=== PATIENT | female | born 1960 | race Caucasian/White ===

== ENCOUNTER → 2019-08-14 08:56 | Outpatient (BNVA) | payer MEDICARE, SELFPAY | PROVIDERS: Family Provider Family Medicine; PCP Family Medicine; Visit Provider Nurse Practitioner | DX: F31.81 Bipolar II disorder (principal); F42.9 Obsessive-compulsive disorder, unspecified | CPT/HCPCS: 99213 ==

== ENCOUNTER → 2019-08-21 07:57 | Outpatient (BNVA) | payer MEDICARE, SELFPAY | PROVIDERS: Family Provider Family Medicine; PCP Family Medicine; Visit Provider Specialist | DX: G43.711 Chronic migraine without aura, intractable, with status migrainosus (principal) | CPT/HCPCS: 64615; J0585 ==

== ENCOUNTER → 2019-11-11 07:35 | Outpatient (BNVA) | payer MEDICARE, SELFPAY | PROVIDERS: Family Provider Family Medicine; PCP Family Medicine; Visit Provider Nurse Practitioner | DX: F42.9 Obsessive-compulsive disorder, unspecified (principal); F31.81 Bipolar II disorder | CPT/HCPCS: 99213 ==

== ENCOUNTER → 2019-11-13 13:12 | Outpatient (BNVA) | payer MEDICARE, SELFPAY | PROVIDERS: Family Provider Family Medicine; PCP Family Medicine; Visit Provider Specialist | DX: G43.711 Chronic migraine without aura, intractable, with status migrainosus (principal); Z87.891 Personal history of nicotine dependence | CPT/HCPCS: 64615; J0585 ==

== ENCOUNTER → 2020-02-02 12:04 | Outpatient (BNVA) | payer MEDICARE, SELFPAY | PROVIDERS: Family Provider Family Medicine; PCP Family Medicine; Visit Provider Specialist | DX: G43.711 Chronic migraine without aura, intractable, with status migrainosus (principal); F42.9 Obsessive-compulsive disorder, unspecified; F31.81 Bipolar II disorder | CPT/HCPCS: 99214 ==

== ENCOUNTER → 2020-02-05 07:54 | Outpatient (BNVA) | payer MEDICARE, SELFPAY | PROVIDERS: Family Provider Family Medicine; PCP Family Medicine; Visit Provider Nurse Practitioner | DX: F42.9 Obsessive-compulsive disorder, unspecified (principal); F31.81 Bipolar II disorder | CPT/HCPCS: 99213 ==

== ENCOUNTER 2020-02-22 08:51 | Inpatient (IN) | payer MEDICARE, SELFPAY ==
[2020-02-22] VITALS (16 sets, daily range): BP systolic 76–138; BP diastolic 52–84; PULSE 67–137; RESP 16–52; TEMP 37.2–38.7; O2SAT 92–96; BMI 28.3
--- NOTE | 2020-02-22 09:05 | XRR_ITS ---
PROCEDURE INFORMATION: Exam: XR Chest, 1 View Exam date and time: 02/22/2020 9:41 AM Age: 59 years old Clinical indication: Shortness of breath; Patient HX: SOB, fever, history of pneumonia TECHNIQUE: Imaging protocol: XR of the chest Views: Frontal upright view of the chest. COMPARISON: CR Chest 1 [place] [id number] 12/10/2017 2:32 PM FINDINGS: Lungs: Mild left parahilar infiltrate. Mild left basilar pulmonary subsegmental atelectasis. The pulmonary vasculature is normal. Pleural space: No definite pleural effusion. No pneumothorax. Heart/Mediastinum: The heart is normal in size and contour. Mediastinum: Stable. Bones/joints: Stable. Soft tissues: Medial left upper quadrant abdominal surgical clips. XR/XR chest 1V portable [id number] IMPRESSION: 1. Mild left parahilar infiltrate. Pneumonitis is difficult to exclude. Clinical correlation is recommended. 2. Mild left basilar pulmonary subsegmental atelectasis. 3. Left upper quadrant abdominal postsurgical changes.
--- NOTE | 2020-02-22 09:08 | W.ED.GENADLT ---
HPI - General Adult General: Chief complaint: General Medical Stated complaint: FEVER/MULTIPLE COMPLAINTS Time Seen by Provider: 02/22/20 08:51 History of Present Illness: HPI narrative: Patient's past states that she has been ill for several days. She has been running a fever. May have had a mild cough and mild shortness of breath. When patient was awakened this morning it was noted that she now has altered mental status. Onset (ago): day(s) Associated symptoms: Reports confusion, cough, decreased appetite, dyspnea, fevers/chills, malaise, nausea, short of breath and weakness Treatments prior to arrival: none Review of Systems General: Reports: 10 or more systems reviewed and unremarkable except in HPI and below Const: Reports: malaise Resp: Reports: dyspnea GI: Reports: nausea Neuro: Reports: confusion PFSH ED PFSH: Medical History Bipolar 2 disorder Generalized epilepsy OCD (obsessive compulsive disorder) Family History Brother Diabetes Mother Hyperlipidemia Stroke Breast cancer Father CAD (coronary artery disease) Other No pertinent family history Denies family history of Hypertension Social History Smoking and tobacco status: former smoker Alcohol intake: former History of recent travel: Yes (travels from [facility]) Physical Exam Const: GENERAL APPEARANCE: in distress, disheveled and ill appearing HENMT: COMMON NORMALS: normocephalic, atraumatic, external ears normal and Normal external nose present HEAD & SCALP: normocephalic and atraumatic FACE & SINUS: normal facial exam NOSE: Normal external nose present EXTERNAL EAR: Yes external ears normal MOUTH: Normal oral and palatal mucosa present Neck/C-Spine: COMMON NORMALS: full ROM, no lymphadenopathy, supple, no meningeal signs and no JVD GENERAL: Yes normal visual inspection Resp: COMMON NORMALS: No retractions, No use of accessory muscles and clear to auscultation bilaterally EFFORT & INSPECTION: Yes tachypneic AUSCULTATION: clear to auscultation bilaterally Cardio: COMMON NORMALS: no JVD, regular rate and regular rhythm RATE: regular rate RHYTHM: regular rhythm GI: COMMON NORMALS: Normal to inspection, nondistended, normoactive bowel sounds present, Soft to palpation, non-tender, No hepatosplenomegaly present and no masses INSPECTION: Yes normal to inspection AUSCULTATION: Yes normoactive bowel sounds PALPATION: Yes Soft to palpation and Yes No hepatosplenomegaly present PERCUSSION: normal to percussion : COMMON NORMALS: Yes no CVA tenderness and Yes normal external appearance BLADDER/KIDNEY EXAM: Yes no CVA tenderness Back/Pelvis: COMMON NORMALS: no CVA tenderness, thoracic and lumbar spine normal to inspection, no thoracic nor lumbar tenderness, thoraco-lumbar ROM normal and straight leg raise negative bilaterally Extremity: COMMON NORMALS: normal to inspection, full ROM, capillary refill normal, no joint enlargement, no clubbing, cyanosis or edema, no calf tenderness and no pedal edema Neuro: COMMON NORMALS: moves all extremities, no focal motor deficits and no sensory deficits noted MENINGEAL SIGNS: Yes no meningeal signs Psych: COMMON NORMALS: mental status grossly normal, Normal thought process present, cooperative, normal affect and speech normal SPEECH: Yes normal speech THOUGHT PROCESS: Normal thought process present Skin: COMMON NORMALS: no rashes or lesions noted, no wounds, turgor normal, no jaundice, no petechiae and no mottling GENERAL SKIN EXAM: no rashes or lesions noted and turgor normal Course Vital Signs: Vital signs: Vital Signs Temperature 101.7 F H 02/22/20 08:55 Pulse Rate 137 H 02/22/20 08:55 Respiratory Rate 52 H 02/22/20 08:55 Blood Pressure 138/84 02/22/20 08:55 Pulse Oximetry 92 02/22/20 08:55 [facility] - General Adult Lab Data: Labs: Lab Results 02/22/20 02/22/20 02/22/20 Range/Units 09:15 09:35 09:35 WBC 15.7 H (4.0-10.0) 10^3/ uL RBC 4.16 (4.1-5.3) 10^6/u L Hgb 12.4 (11.5-15.3) g/dL Hct 38.6 (37.0-47.0) % MCV 92.8 (81-99) fL MCH 29.8 (28.0-34.0) pg MCHC 32.1 (30.0-36.0) g/dL RDW 13.8 (12.1-15.1) % Plt Count 203 (130-400) 10^3/c mm MPV 9.9 (7.4-10.4) fL Neut % (Auto) 90.9 % Lymph % (Auto) 2.9 % [place] % (Auto) 5.0 % Eos % (Auto) 0.0 % Baso % (Auto) 0.4 % Neut # (Auto) 14.29 H (1.8-7.7) 10^3/u L Lymph # (Auto) 0.5 L (0.8-4.8) 10^3/u L [place] # (Auto) 0.8 (0.2-0.9) 10^3/u L Eos # (Auto) 0.0 (0.0-0.8) 10^3/u L Baso # (Auto) 0.1 (0.0-0.1) 10^3/u L Nucleated RBC % (a uto) 0 % Nucleated RBCs # 0.0 /100WBC Specimen Type Arterial Sample Site Radial, right ABG pH 7.42 (7.35-7.45) ABG pCO2 25.9 L (35-45) mmHg ABG pO2 83.0 (80.0-100.0) mmH g ABG HCO3 16.9 L (22-26) mmol/L ABG Base Excess -5.9 L (-2.0-2.0) mmol/ L [place] Test Pos Hematocrit 39.6 (37-47) % O2 Delivery Device Room air Brick Pointer ID gd Sodium 132 L (136-145) mmol/L Potassium 3.9 (3.5-5.1) mmol/L Chloride 100 (98-107) mmol/L Carbon Dioxide 19 L (22-29) mmol/L Anion Gap 16.9 (5-19) BUN 14 (6-20) mg/dL Creatinine 0.9 (0.5-0.9) mg/dL GFR Calculation 64.1 L (90-130) mL/min Glucose 126 H (65-115) mg/dL Calculated Osmolal ity 272 L (285-295) mOsm/k g Lactate (0.5-2.2) mmol/L Calcium 9.4 (8.5-10.5) mg/dL Total Bilirubin 0.3 (0.15-1.2) mg/dL AST 15 (0-32) U/L ALT 10 (0-33) U/L Alkaline Phosphata se 73 (35-105) IU/L NT-Pro-B Natriuret Pep 1204 H (0-125) pg/mL Total Protein 6.6 (6.6-8.7) g/dL Albumin 4.4 (3.5-5.2) g/dL Globulin 2.2 (1.3-4.6) g/dL Lipase 13 (13-60) U/L Urine Color (Yellow) Urine Appearance (CLEAR) Urine pH (5-7) Ur Specific Gravit y (1.005-1.030) Urine Protein (Negative) Urine Glucose (UA) (Normal) Urine Ketones (Negative) Urine Blood (Negative) Urine Nitrate (Negative) Urine Bilirubin (NEGATIVE) Prot Sulfosalicyli c Acd (Negative) Urine Urobilinogen (Negative) mg/dL Ur Leukocyte Melisa ase (Negative) 02/22/20 02/22/20 Range/Units 09:35 09:38 WBC (4.0-10.0) 10^3/ uL RBC (4.1-5.3) 10^6/u L Hgb (11.5-15.3) g/dL Hct (37.0-47.0) % MCV (81-99) fL MCH (28.0-34.0) pg MCHC (30.0-36.0) g/dL RDW (12.1-15.1) % Plt Count (130-400) 10^3/c mm MPV (7.4-10.4) fL Neut % (Auto) % Lymph % (Auto) % [place] % (Auto) % Eos % (Auto) % Baso % (Auto) % Neut # (Auto) (1.8-7.7) 10^3/u L Lymph # (Auto) (0.8-4.8) 10^3/u L [place] # (Auto) (0.2-0.9) 10^3/u L Eos # (Auto) (0.0-0.8) 10^3/u L Baso # (Auto) (0.0-0.1) 10^3/u L Nucleated RBC % (a uto) % Nucleated RBCs # /100WBC Specimen Type Sample Site ABG pH (7.35-7.45) ABG pCO2 (35-45) mmHg ABG pO2 (80.0-100.0) mmH g ABG HCO3 (22-26) mmol/L ABG Base Excess (-2.0-2.0) mmol/ L Keon Test Hematocrit (37-47) % O2 Delivery Device Brick Pointer ID Sodium (136-145) mmol/L Potassium (3.5-5.1) mmol/L Chloride (98-107) mmol/L Carbon Dioxide (22-29) mmol/L Anion Gap (5-19) BUN (6-20) mg/dL Creatinine (0.5-0.9) mg/dL GFR Calculation (90-130) mL/min Glucose (65-115) mg/dL Calculated Osmolal ity (285-295) mOsm/k g Lactate 2.1 (0.5-2.2) mmol/L Calcium (8.5-10.5) mg/dL Total Bilirubin (0.15-1.2) mg/dL AST (0-32) U/L ALT (0-33) U/L Alkaline Phosphata se (35-105) IU/L NT-Pro-B Natriuret Pep (0-125) pg/mL Total Protein (6.6-8.7) g/dL Albumin (3.5-5.2) g/dL Globulin (1.3-4.6) g/dL Lipase (13-60) U/L Urine Color Yellow (Yellow) Urine Appearance Clear (CLEAR) Urine pH 9 H (5-7) Ur Specific Gravit y 1.010 (1.005-1.030) Urine Protein Neg (Negative) Urine Glucose (UA) Norm (Normal) Urine Ketones Negative (Negative) Urine Blood Neg (Negative) Urine Nitrate Negative (Negative) Urine Bilirubin Neg (NEGATIVE) Prot Sulfosalicyli c Acd Negative (Negative) Urine Urobilinogen Norm (Negative) mg/dL Ur Leukocyte Melisa ase Negative (Negative) Discharge Plan Discharge Patient Disposition: Admitted As Inpatient Clinical Impression: Pneumonitis, Acute dyspnea Fever Qualifiers: Fever type: due to other condition Qualified Code(s): R50.81 - Fever presenting with conditions classified elsewhere Condition: Fair Referrals: Radha Blanco MD [Primary Care Provider] - Coding Level of Care Code ED Geophysical Engineer for Chg Fwd Exam Comprehensive
[2020-02-22 09:30] LABS: ABG PCO2 25.9 mmHg (35-45); ABG PH Result 7.42 (7.35-7.45); Arterial Blood Gas Hematocrit 39.6 % (37-47); Base Excess ABG -5.9 mmol/L (-2.0-2.0); Blood Gas Allen Test Pos; Blood Gas Sample Site Radial, right; Blood Gas Sample Type Arterial; HCO3 ABG 16.9 mmol/L (22-26); Oxygen Device ROOM AIR
[2020-02-22 09:42] LABS: Basophils # 0.1 10^3/uL (0.0-0.1); Basophils % 0.4 %; Hematocrit 38.6 % (37.0-47.0); Hemoglobin 12.4 g/dL (11.5-15.3); Lymphocytes # 0.5 10^3/uL (0.8-4.8); Lymphocytes % 2.9 %; Mean Corpuscular HGB Conc 32.1 g/dL (30.0-36.0); Mean Corpuscular Hemoglobin 29.8 pg (28.0-34.0); Mean Corpuscular Volume 92.8 fL (81-99); Mean Platelet Volume 9.9 fL (7.4-10.4); Monocytes # 0.8 10^3/uL (0.2-0.9); Neutrophils # 14.29 10^3/uL (1.8-7.7); Neutrophils % 90.9 %; Nucleated Red Blood Cells % 0 %; Platelet Count 203 10^3/cmm (130-400); Red Blood Count 4.16 10^6/uL (4.1-5.3); Red Cell Distribution Width 13.8 % (12.1-15.1); White Blood Count 15.7 10^3/uL (4.0-10.0)
[2020-02-22] MEDS: sodium chloride 0.9% 1,000 ML 999 ML IV ×2 (09:59→11:00)
[2020-02-22 10:07] LABS: Lactate (Lactic Acid level) 2.1 mmol/L (0.5-2.2)
[2020-02-22 10:13] LABS: Add Urine Microscopic? NO
[2020-02-22 10:16] LABS: Alanine Aminotransferase 10 U/L (0-33); Albumin Level 4.4 g/dL (3.5-5.2); Alkaline Phosphatase 73 IU/L (35-105); Anion Gap 16.9 (5-19); Aspartate Amino Transferase 15 U/L (0-32); Blood Urea Nitrogen 14 mg/dL (6-20); Calcium 9.4 mg/dL (8.5-10.5); Carbon Dioxide 19 mmol/L (22-29); Chloride 100 mmol/L (98-107); Creatinine Clr Calc Pharmacy 66.6795; Globulin 2.2 g/dL (1.3-4.6); Glomerular Filtration Rate 64.1 mL/min (90-130); Glucose 126 mg/dL (65-115); Lipase 13 U/L (13-60); NT Pro B Type Natriuretic Pept 1204 pg/mL (0-125); Osmolality Calculated 272 mOsm/kg (285-295); Potassium 3.9 mmol/L (3.5-5.1); Sodium 132 mmol/L (136-145); Total Bilirubin 0.3 mg/dL (0.15-1.2); Total Protein 6.6 g/dL (6.6-8.7)
[2020-02-22 10:28] LABS: Bilirubin Urine Neg (NEGATIVE); Blood Urine Neg (Negative); Glucose Urine UA Norm (Normal); Ketones Urine Negative (Negative); Leukocyte Esterase Urine Negative (Negative); Nitrate Urine Negative (Negative); Protein Urine Neg (Negative); Sulfosalicylic Acid Urine Negative (Negative); Urine Appearance Clear (CLEAR); Urine Color Yellow (Yellow); Urobilinogen Urine Norm (Negative); pH Urine 9 (5-7)
[2020-02-22] MEDS: piperacillin-tazobactam 3.375 GM in sodium chloride 0.9% (plus) 50 ML IV (11:45)
--- NOTE | 2020-02-22 12:52 | CTR_ITS ---
PROCEDURE INFORMATION: Exam: CT Head Without Contrast Exam date and time: 02/22/2020 1:12 PM Age: 59 years old Clinical indication: Altered mental status/memory loss; Confusion or disorientation; Patient HX: Fever, altered mental status/confusion TECHNIQUE: Imaging protocol: Computed tomography of the head without contrast. Radiation optimization: All CT scans at this facility use at least one of these dose optimization techniques: automated exposure control; mA and/or kV adjustment per patient size (includes targeted exams where dose is matched to clinical indication); or iterative reconstruction. COMPARISON: CT head wo con* [id number] 12/10/2017 3:03 PM RADIATION DOSE METRICS: Total DLP (mGy-cm): 801.2 FINDINGS: Brain: Normal. No hemorrhage. Unremarkable white matter. No mass effect. Ventricles: Normal. No ventriculomegaly. Bones/joints: Unremarkable. No acute fracture. Sinuses: Visualized sinuses are unremarkable. No fluid levels. Mastoid air cells: Visualized mastoid air cells are well aerated. Soft tissues: Unremarkable. CT/CT head wo con* [id number] IMPRESSION: No acute intracranial abnormality identified. Radiation Dose CTDIVOL = (mGy): DLP = 801.2 (mGy-cm)
--- NOTE | 2020-02-22 12:53 | PM.HP ---
Providers/Chief Complaint Admitting Physician: Giovanni Chery MD Primary Care Provider: Radha Blanco MD Chief Complaint: FEVER/MULTIPLE COMPLAINTS History of Present Illness Cassie Schwartz is a 59 year old female with a past medical history of COPD, chronic migraines, bipolar disorder, has a history of seizures secondary to sepsis in the past, has a history of a tracheostomy secondary to prolonged mechanical ventilation secondary to sepsis, has a history of traumatic brain injury, has a history of what it sounds like volvulus with colectomy, who presents to [facility] due to complaints of fever, cough, shortness of breath, altered mental status. Patient's was at bedside, and significant portion of the history was obtained by . According to , patient was her usual self, is fairly independent, alert oriented x3, fairly active. They recently traveled up to [place], went to [facility]. Have remained locally here in [place]. Starting 2 days ago, she developed fevers, complaints of shortness of breath, chest tightness, episodes of confusion. Cough is nonproductive. No hemoptysis. No recent surgeries bridged no calf pain or calf swelling. No sick contacts. No known exposures COVID-19. She complained of shortness of breath at rest and exertion. Complaint of chest tightness and chest discomfort. Denies a significant cardiac history, no history of stenting. No history of heart failure. Does have a history of COPD, quit smoking 6 months ago. Did have a history of pneumonia, 3 times in her life. No dysuria. No hematuria. Has been complaining of a chronic migraine, sees Dr. Perez as outpatient, states all her medications have been stopped and, but as per Dr. Perez's notes it looks like she is on Zonegran and Topamax. No recent falls. No recent injury, no neck pain. But does have back pain. No blurry vision. No slurring of her speech. Has has been complaining of chills, body aches, generalized malaise. In the emergency room, patient T-max 101.7, tachycardic heart rates in the 130s, respiratory rate 20-30, saturating 92% on room air, arterial blood gas showed pH 7.42, bicarb 16.9, PO2 83, sodium 132, white blood cell count 15.7, neutrophilic 14.29, lymphopenia white blood cell count 0.5, BMP 1204, UA no significant signs of urinary tract infection, chest x-ray shows right and left perihilar infiltrates, patient meets sepsis criteria, complaining of shortness of breath, chest discomfort, intermittently confused at bedside states that she is full code Review of Systems Const: Reports: fever(s), chills, body aches, fatigue and malaise Eyes: Denies: change in vision or blurry vision ENMT: Denies: throat pain or nasal congestion Card: Denies: chest pain or palpitations Resp: Reports: dyspnea and non-productive cough; Denies: productive cough or wheezing GI: Reports: abdominal pain; Denies: nausea, vomiting, hematemesis, diarrhea, constipation, hematochezia or melena : Denies: flank pain, dysuria or urinary frequency Musc: Denies: neck pain or back pain Skin/Breast: Denies: rash Neuro: Denies: headache(s), dizziness or vertigo Psych: Denies: anxiety or depression Endo: Denies: polyuria or polydipsia Medications/Allergies Home Medications Medication Instructions Recorded Confirmed Last Taken Type fluticasone propionate 50 1 spray INTRANASAL DAILY ml 08/12/19 02/22/20 02/21/20 History mcg/actuation nasal spray,suspension omeprazole 20 mg capsule,delayed 20 mg PO DAILY cap 08/12/19 02/22/20 02/21/20 History release oxybutynin chloride 5 mg 10 mg PO BID #60 tab 12/23/19 02/22/20 02/21/20 Rx tablet,extended release 24 hr zonisamide 100 mg capsule 400 mg PO DAILY 90 Days #360 cap 02/02/20 02/22/20 02/21/20 Rx lamotrigine 200 mg tablet 400 mg PO .HS #180 tab 02/05/20 02/22/20 02/21/20 Rx trazodone 100 mg tablet 300 mg PO .HS PRN #270 tab 02/05/20 02/22/20 02/21/20 Rx venlafaxine 75 mg capsule,extended 75 mg PO QAM #90 cap 02/05/20 02/22/20 02/21/20 Rx release 24 hr Ambien 10 mg PO BEDTIME 02/22/20 02/22/2020 History Geodon 120 mg PO BEDTIME 02/22/20 02/22/20 02/21/20 History gabapentin 400 mg PO DAILY 02/22/20 02/22/20 02/21/20 History topiramate 50 mg PO DAILY 02/22/20 02/22/20 02/21/20 History Allergies Allergy/AdvReac Type Severity Reaction Status Date / Time No Known Allergies Allergy Verified 02/22/20 10:15 PFSH Acute PFSH: Medical History (Updated 02/22/20 @ 13:12 by Giovanni Chery MD) Bipolar 2 disorder Generalized epilepsy OAB (overactive bladder) OCD (obsessive compulsive disorder) ALEKSANDER (stress urinary incontinence, female) Surgical History (Updated 02/22/20 @ 13:05 by Giovanni Chery MD) History of vaginal surgery posterior colporrhaphy augmented with porcine graft and mid urethral sling 07/10/2018- per Dr. Canela at [facility] No pertinent past surgical history S/P arthroscopic knee surgery 2003- bilateral knees S/P gastric bypass S/P hysterectomy states she still has her ovaries S/P partial resection of colon S/P tubal ligation Status post left knee replacement 2003 Status post tracheostomy Family History Brother Diabetes Mother Hyperlipidemia Stroke Breast cancer Father CAD (coronary artery disease) Other No pertinent family history Denies family history of Hypertension Social History Smoking and tobacco status: former smoker Alcohol intake: former History of recent travel: Yes (travels from [facility]) Vitals/I&O/Wt Last Vital Signs Temp 101.7 F H 02/22/20 08:55 Pulse 137 H 02/22/20 08:55 Resp 52 H 02/22/20 08:55 BP 138/84 02/22/20 08:55 Pulse Ox 92 02/22/20 08:55 02/21/20 02/22/20 02/22/20 22:59 06:59 14:59 Intake Total 1000 / 1000 Balance 1000 / 1000 Weight last 48 hrs Weight 74.843 kg Physical Exam Narrative: EXAM NARRATIVE: Has episodes of delirium, episodes of confusion, but at other times answers questions appropriately Const: COMMON NORMALS: no acute distress EXAM LIMITATIONS: altered mental status GENERAL APPEARANCE: ill appearing ORIENTATION/CONSCIOUSNESS: Yes awake, Yes oriented to person and Yes confused; not oriented to place and not oriented to time HENMT: COMMON NORMALS: normocephalic Eye: COMMON NORMALS: Equal, round and reactive pupils present and EOMs intact bilaterally Neck/C-Spine: COMMON NORMALS: full ROM and no lymphadenopathy Lymph: LYMPHATIC: no lymphadenopathy noted Chest: COMMONS NORMALS: normal inspection of the chest Resp: COMMON NORMALS: normal respiratory effort EFFORT & INSPECTION: Yes able to speak in complete sentences, Yes tachypneic, Yes labored, Yes Actively coughing and Yes retractions AUSCULTATION: crackles Cardio: COMMON NORMALS: no JVD RATE: tachycardic HEART SOUNDS: S1 normal heart sound present and S2 normal heart sound present GI: COMMON NORMALS: Normal to inspection, nondistended, normoactive bowel sounds present PALPATION: Yes Soft to palpation, No Firmness to palpation present (GI), Yes Tenderness to palpation present (GI) Details: LLQ, RLQ, LUQ, RUQ and other, No Guarding due to palpation present (GI), No Rigid due to palpation and Yes No hepatosplenomegaly present : COMMON NORMALS: Yes no CVA tenderness Extremity: COMMON NORMALS: normal to inspection Neuro: SENSORIUM/ORIENTATION: Yes oriented to person, No oriented to place, No oriented to time and Yes fluctuating sensorium MENINGEAL SIGNS: Yes no meningeal signs and No nuccal rigidity MOTOR EXAM: 5/5 motor strength present throughout OTHER: Difficult to follow neurologic exam Sepsis: Is patient septic: Yes Focused sepsis exam performed: Yes Date exam was performed: 02/22/20 Time exam was performed: 13:07 Data : 02/22/20 09:35 02/22/20 09:35 Micro: Microbiology 02/22/20 09:30 Blood Culture - Preliminary Blood SPECIMEN COLLECTED 02/22/20 09:35 Blood Culture - Preliminary Blood SPECIMEN COLLECTED A&P Assessment and plan (1) Acute respiratory failure with hypoxia: -Secondary to bilateral lower lobe pneumonia, atypical pneumonia, risk of COVID-19 -Risk factors include COPD, history of tracheostomy, history of sepsis and mechanical ventilation in the past, history of seizures secondary to sepsis -Concern for sepsis given tachycardia, tachypnea, fever, leukocytosis, alteration of her mentation Plan: -I believe patient needs intensive care monitoring due to concerns for sepsis -Neurochecks -Place Renteria -Monitor respiratory status closely -Oxygen therapy -COVID-19 precautions -Obtain CT of the chest CTA head -Start on azithromycin and Rocephin -Sputum cultures, blood cultures, inflammatory markers -Check TSH, cortisol -Lovenox for DVT prophylaxis -Full code -Hold off on IV fluids due to concerns for fluid overload with COVID-19, currently not hypotensive Status: Acute (2) Septic encephalopathy: -Secondary to bilateral lobe pneumonia, atypical pneumonia, risk of COVID-19 Status: Acute (3) Chronic migraine: Status: Acute (4) History of tracheostomy: Status: Acute (5) COPD (chronic obstructive pulmonary disease): Status: Acute (6) Fever: Status: Acute Qualifiers: Fever type: due to other condition Qualified Code(s): R50.81 - Fever presenting with conditions classified elsewhere (7) Mixed urinary incontinence due to female genital prolapse: Status: Acute (8) Chronic migraine without aura, intractable, with status migrainosus: Status: Acute (9) Generalized epilepsy: Status: Acute (10) Peripheral neuropathy: Status: Acute (11) OCD (obsessive compulsive disorder): Status: Acute (12) Bipolar 2 disorder: Status: Acute (13) Sepsis: Status: Acute Attestations Medical Necessity Statement*: Patient cards hospitalization, inpatient, greater than 2 midnights, for acute respiratory failure with hypoxia, sepsis, septic encephalopathy Coding Level of Care Code Acute Bottom Man for [facility] Diagnoses Acute respiratory failure with hypoxia J96.01 Septic encephalopathy G93.41 Chronic migraine G43.709 History of tracheostomy Z98.890 COPD (chronic obstructive pulmonary disease) J44.9 Fever R50.81 Fever type: due to other condition Mixed urinary incontinence due to female genital prolapse N39.46; N81.9 Chronic migraine without aura, intractable, with status migrainosus G43.711 Generalized epilepsy G40.309 Peripheral neuropathy G62.9 OCD (obsessive compulsive disorder) F42.9 Bipolar 2 disorder F31.81 Sepsis A41.9 Sepsis Event Note Evaluation Current stage of sepsis: sepsis Possible source: pulmonary Focused Exam Vital Signs Temp Pulse Resp BP Pulse Ox 02/22/20 08:55 101.7 F H 137 H 52 H 138/84 92 07/12/20 08:51 94 Respiratory exam: Present accessory muscle use Cardiovascular exam: Present tachycardia Capillary refill: < 3 Seconds Peripheral pulse strength: 3+ Normal Skin exam: normal turgor Date exam was performed: 02/22/20 Time exam was performed: 13:08 Problem List (1) Septic encephalopathy: Status: Acute (2) Sepsis: Status: Acute
[2020-02-22 13:02] LABS: Troponin T (5th) Once 6 ng/L (0-10)
[2020-02-22 13:03] LABS: Fibrinogen 550 mg/dL (184-529); INR 1.24 (0.8-1.2)
[2020-02-22 13:28] LABS: Procalcitonin 7.11 ng/mL (0-0.5)
[2020-02-22 13:39] LABS: C Reactive Protein 308.6 mg/L (0.0-4.9); Ferritin 205 ng/mL (15-150)
[2020-02-22 13:41] LABS: Lactate Dehydrogenase 205 U/L (135-214)
--- NOTE | 2020-02-22 13:57 | ECG_ITS ---
[facility] Test Date: 2020-02-22 Pat Name: Cassie Schwartz Department: Room: [facility] [place] Gender: Female Search Analyst: : 1960 Requested By: Giovanni Chery Order Number: [id number] Slick MD: Daniel Alfredo M.D. Measurements Intervals [place] Rate: 118 P: 52 HI: 143 QRS: 48 QRSD: 87 T: 42 QT: 347 QTc: 487 Interpretive Statements SINUS TACHYCARDIA ABNORMAL RHYTHM ECG INTERPRETATION BASED ON A DEFAULT AGE OF 40 YEARS Compared to ECG 12/10/2017 15:31:14 Sinus rhythm no longer present Electronically Signed On 02-22-2020 19:06:58 CDT by Daniel Alfredo M.D. [id number]
[2020-02-22] MEDS: acetaminophen 500 mg Tablet 1000 MG PO (14:03)
[2020-02-22] MEDS: enoxaparin 40 mg/0.4 mL Syringe SUBCUT (14:04)
[2020-02-22] MEDS: cefTRIAXone 1,000 MG in sodium chloride 0.9% (plus) 50 ML 100 MG IV (14:04)
[2020-02-22] MEDS: sodium chloride 0.9% 1,000 ML 75 ML IV (14:06)
--- NOTE | 2020-02-22 14:58 | ECG_ITS ---
[facility] Test Date: 2020-02-22 Pat Name: Cassie Schwartz Department: Room: [facility] Gender: Female Rib Trim Separator: : 1960 Requested By: Giovanni Chery Order Number: [id number] Slick MD: Daniel Alfredo M.D. Measurements Intervals [place] Rate: 109 P: 53 AK: 148 QRS: 45 QRSD: 85 T: 32 QT: 333 QTc: 449 Interpretive Statements SINUS TACHYCARDIA ABNORMAL RHYTHM ECG Compared to ECG 02/22/2020 15:00:03 No significant changes Electronically Signed On 02-22-2020 19:10:26 CDT by Daniel Alfredo M.D. [id number] f
[2020-02-22 15:08] LABS: Troponin(5th) Baseline 6 ng/L (0-10)
[2020-02-22 15:57] LABS: Influenza A by IFA Negative (Negative); Influenza B by IFA Negative (Negative)
[2020-02-22 16:59] LABS: Troponin 5 2HR Delta 0 ABS# (0-10)
[2020-02-22] MEDS: ibuprofen 200 mg Tablet 400 MG PO (17:38)
[2020-02-22] MEDS: azithromycin 500 MG in sodium chloride 0.9% 250 ML 250 MG IV (17:39)
[2020-02-22] MEDS: SUMAtriptan 25 mg Tablet 50 MG PO (17:39)
[2020-02-22 19:17] LABS: Troponin 5 6HR Delta 0 ng/L (0-12)
[2020-02-22] MEDS: ziprasidone hcl 60 mg Capsule 120 MG PO (20:33)
[2020-02-22] MEDS: oxybutynin chloride XL 5 MG TABLET 10 MG PO (20:33)
[2020-02-22] MEDS: lamoTRIgine 100 mg Tablet 400 MG PO (20:33)
[2020-02-23] VITALS (28 sets, daily range): BP systolic 76–134; BP diastolic 54–87; PULSE 86–110; RESP 14–16; TEMP 36.3–37.4; O2SAT 92–98
[2020-02-23] MEDS: sodium chloride 0.9% 1,000 ML 75 ML IV (03:53)
[2020-02-23] MEDS: sodium chloride 0.9% 250 ML IV (03:53)
[2020-02-23] MEDS: venlafaxine ER (24HR) 75 mg Capsule PO (05:34)
--- NOTE | 2020-02-23 07:39 | XR_ITS ---
WS: [id number] CHEST XRAY TECHNIQUE: Portable chest. CLINICAL INFORMATION: SOB COMPARISON: February 22, 2020 FINDINGS: Heart: Normal cardiac silhouette. Lungs: Tiny left pleural effusion with slight patchy infiltrate with subsegmental atelectasis left jaret ng base. This is similar to previous. Interstitial edema or infiltrates left perihilum. Bones: Normal visualized bony structures. XR/XR chest 1V portable [id number] IMPRESSION: Volume loss left lower lobe with trace pleural fluid and left lower lobe patchy infiltrate/atelectasis similar to previous.
[2020-02-23 08:14] LABS: Basophils # 0.1 10^3/uL (0.0-0.1); Basophils % 0.5 %; Eosinophils % 0.2 %; Hematocrit 32.2 % (37.0-47.0); Lymphocytes # 0.9 10^3/uL (0.8-4.8); Lymphocytes % 7.7 %; Mean Corpuscular HGB Conc 31.1 g/dL (30.0-36.0); Mean Corpuscular Hemoglobin 29.3 pg (28.0-34.0); Mean Corpuscular Volume 94.4 fL (81-99); Mean Platelet Volume 10.3 fL (7.4-10.4); Monocytes # 0.5 10^3/uL (0.2-0.9); Monocytes % 4.3 %; Neutrophils # 9.43 10^3/uL (1.8-7.7); Neutrophils % 84.9 %; Nucleated Red Blood Cells % 0 %; Platelet Count 171 10^3/cmm (130-400); Red Blood Count 3.41 10^6/uL (4.1-5.3); Red Cell Distribution Width 14.1 % (12.1-15.1); White Blood Count 11.1 10^3/uL (4.0-10.0)
[2020-02-23 08:42] LABS: Procalcitonin 10.61 ng/mL (0-0.5)
[2020-02-23 08:53] LABS: Alanine Aminotransferase 7 U/L (0-33); Albumin Level 3.1 g/dL (3.5-5.2); Alkaline Phosphatase 78 IU/L (35-105); Anion Gap 11.7 (5-19); Aspartate Amino Transferase 9 U/L (0-32); Blood Urea Nitrogen 13 mg/dL (6-20); Calcium 8.7 mg/dL (8.5-10.5); Carbon Dioxide 19 mmol/L (22-29); Chloride 113 mmol/L (98-107); Globulin 2.4 g/dL (1.3-4.6); Glomerular Filtration Rate 85.6 mL/min (90-130); Glucose 101 mg/dL (65-115); Magnesium 2.3 mg/dL (1.7-2.3); Osmolality Calculated 286 mOsm/kg (285-295); Phosphorus 1.9 mg/dL (2.5-4.5); Potassium 3.7 mmol/L (3.5-5.1); Sodium 140 mmol/L (136-145); Total Bilirubin 0.2 mg/dL (0.15-1.2); Total Protein 5.5 g/dL (6.6-8.7)
--- NOTE | 2020-02-23 09:59 | PC.NURSE ---
Taylor used. SVI >10% at 45.7. Dr. Chery notified.
[2020-02-23] MEDS: sodium chloride 0.9% 500 ML 999 ML IV (10:22)
[2020-02-23] MEDS: fluticasone nasal spray 16gm Btl 1 SPRAY INTRANASAL (10:28)
[2020-02-23] MEDS: topiramate 25 mg Tablet 50 MG PO (10:30)
[2020-02-23] MEDS: gabapentin 400 mg Capsule PO (10:30)
[2020-02-23] MEDS: oxybutynin chloride XL 5 MG TABLET 10 MG PO ×2 (10:30→18:21)
[2020-02-23] MEDS: pantoprazole DR 40 mg Tablet PO (10:30)
[2020-02-23] MEDS: zonisamide 100 MG Capsule 400 MG PO (10:31)
--- NOTE | 2020-02-23 12:32 | P.PN_ITS ---
Subjective Subjective: Interval history: This morning patient was seen in the intensive care unit, she is alert oriented x3, she complains of shortness of breath and chest discomfort, she saturating in the high 90s on room air, complains of a cough, has had fevers overnight, appetite is a bit poor, had some hypotensive episodes overnight resolving with fluids, is wondering about her COVID-19 status Vitals/I&O/Wt Last Vital Signs Temp 99.1 F 02/23/20 04:00 Pulse 110 H 02/23/20 09:00 Resp 16 02/23/20 08:27 BP 97/66 02/23/20 09:00 Pulse Ox 95 02/23/20 09:00 02/22/20 02/23/20 02/23/20 22:59 06:59 14:59 Intake Total 590 / 1590 1250 / 2840 220 / 220 Output Total 1900 / 1900 1350 / 3250 Balance -1310 / -310 -100 / -410 220 / 220 Weight last 48 hrs Weight 74.843 kg Physical Exam Const: COMMON NORMALS: patient oriented x3 GENERAL APPEARANCE: ill appearing HENMT: COMMON NORMALS: normocephalic HEAD & SCALP: normocephalic Neck/C-Spine: COMMON NORMALS: no JVD Resp: COMMON NORMALS: normal respiratory effort, No retractions, No use of accessory muscles and clear to auscultation bilaterally AUSCULTATION: clear to auscultation bilaterally Cardio: COMMON NORMALS: no JVD, regular rhythm, S1 normal heart sound present and S2 normal heart sound present RATE: tachycardic RHYTHM: regular rhythm HEART SOUNDS: S1 normal heart sound present and S2 normal heart sound present GI: COMMON NORMALS: Normal to inspection, nondistended, normoactive bowel sounds present, Soft to palpation, non-tender, No hepatosplenomegaly present, no masses and no bruits PALPATION: Yes Soft to palpation and Yes No hepatosp lenomegaly present Extremity: COMMON NORMALS: capillary refill normal, no clubbing, cyanosis or edema, no calf tenderness and no pedal edema Neuro: COMMON NORMALS: patient oriented x3 Psych: COMMON NORMALS: mental status grossly normal Urinary Catheter Management^: Renteria: Cath Placed During This Visit: yes Urinary Catheter Date of Insertion: 02/22/20 Urinary Catheter Time of Insertion: 13:27 Data : 02/23/20 07:45 02/23/20 07:45 Micro: Microbiology 02/22/20 15:15 MRSA Culture - Final Nose 02/22/20 09:30 Blood Culture - Preliminary Blood NEGATIVE TO DATE 02/22/20 09:35 Blood Culture - Preliminary Blood NEGATIVE TO DATE 02/22/20 18:10 Bacterial Antigens - Final Urine,Clean Catch A&P Assessment and plan (1) Acute respiratory failure with hypoxia: -Secondary to bilateral lower lobe pneumonia, atypical pneumonia, risk of COVID-19 -Risk factors include COPD, history of tracheostomy, history of sepsis and mechanical ventilation in the past, history of seizures secondary to sepsis -Concern for sepsis given tachycardia, tachypnea, fever, leukocytosis, alteration of her mentation -Fevers overnight, hypotensive episodes, mentation has improved back to baseline, continues to have intermittent episodes of tachycardia, sinus, white blood cell count down to 11.1, pro-Saran 10.61 Plan: -I believe patient needs intensive care monitoring due to concerns for sepsis -Neurochecks -Renteria in place -Patient is fluid responsive, SVI delta 47 -Monitor respiratory status closely -Oxygen therapy -COVID-19 precautions -Obtain CT of the chest CTA head -Start on azithromycin and Rocephin -Sputum cultures, blood cultures, inflammatory markers -Lovenox for DVT prophylaxis -Full code Status: Acute (2) Septic encephalopathy: -Secondary to bilateral lobe pneumonia, atypical pneumonia, risk of COVID- 19 -Mentation improved, alert oriented x3 Status: Acute (3) Chronic migraine: Status: Acute (4) History of tracheostomy: Status: Acute (5) COPD (chronic obstructive pulmonary disease): Status: Acute (6) Fever: Status: Acute Qualifiers: Fever type: due to other condition Qualified Code(s): R50.81 - Fever presenting with conditions classified elsewhere (7) Mixed urinary incontinence due to female genital prolapse: Status: Acute (8) Chronic migraine without aura, intractable, with status migrainosus: Status: Acute (9) Generalized epilepsy: Status: Acute (10) Peripheral neuropathy: Status: Acute (11) OCD (obsessive compulsive disorder): Status: Acute (12) Bipolar 2 disorder: Status: Acute (13) Sepsis: Status: Acute Attestations Medical Necessity Statement*: Requires continued hospitalization due to respiratory failure secondary to pneumonia, possible COVID-19 Coding Level of Care Code Acute Aviation Warfare Systems Operator for Chg Fwd Diagnoses Acute respiratory failure with hypoxia J96.01 Septic encephalopathy G93.41 Chronic migraine G43.709 History of tracheostomy Z98.890 COPD (chronic obstructive pulmonary disease) J44.9 Fever R50.81 Fever type: due to other condition Mixed urinary incontinence due to female genital prolapse N39.46; N81.9 Chronic migraine without aura, intractable, with status migrainosus G43.711 Generalized epilepsy G40.309 Peripheral neuropathy G62.9 OCD (obsessive compulsive disorder) F42.9 Bipolar 2 disorder F31.81 Sepsis A41.9
[2020-02-23] MEDS: cefTRIAXone 1,000 MG in sodium chloride 0.9% (plus) 50 ML 100 MG IV (14:52)
[2020-02-23] MEDS: enoxaparin 40 mg/0.4 mL Syringe SUBCUT (14:52)
[2020-02-23] MEDS: azithromycin 500 MG in sodium chloride 0.9% 250 ML 250 MG IV (14:56)
--- NOTE | 2020-02-23 17:22 | PC.NURSE ---
Called CT a 2nd time to check about getting pt in for CT. State they will work her in when they can
--- NOTE | 2020-02-23 20:15 | PC.NURSE ---
Pt resting in bed. No complaints of pain, but does report weakness. Pt remembers being confused but feels okay now- just states that she feels foggy . Glasses on face and full dentures noted. Renteria in place. No further needs identified at this time.
[2020-02-23] MEDS: lamoTRIgine 100 mg Tablet 400 MG PO (20:42)
[2020-02-23] MEDS: ziprasidone hcl 60 mg Capsule 120 MG PO (20:42)
[2020-02-23] MEDS: acetaminophen 325 mg Tablet 650 MG PO (23:28)
[2020-02-24] VITALS (18 sets, daily range): BP systolic 117–150; BP diastolic 73–87; PULSE 79–112; RESP 14–22; TEMP 37–37.2; O2SAT 92–96
[2020-02-24] MEDS: acetaminophen 325 mg Tablet 650 MG PO ×2 (03:21→17:54)
[2020-02-24] MEDS: venlafaxine ER (24HR) 75 mg Capsule PO (05:08)
[2020-02-24 05:19] LABS: Basophils % 0.5 %; Eosinophils # 0.1 10^3/uL (0.0-0.8); Eosinophils % 1.4 %; Hematocrit 31.4 % (37.0-47.0); Hemoglobin 9.9 g/dL (11.5-15.3); Lymphocytes # 1.3 10^3/uL (0.8-4.8); Lymphocytes % 16.7 %; Mean Corpuscular HGB Conc 31.5 g/dL (30.0-36.0); Mean Corpuscular Hemoglobin 30.5 pg (28.0-34.0); Mean Corpuscular Volume 96.6 fL (81-99); Mean Platelet Volume 10.4 fL (7.4-10.4); Monocytes # 0.3 10^3/uL (0.2-0.9); Monocytes % 3.6 %; Neutrophils # 6.14 10^3/uL (1.8-7.7); Neutrophils % 76.9 %; Nucleated Red Blood Cells % 0 %; Platelet Count 175 10^3/cmm (130-400); Red Blood Count 3.25 10^6/uL (4.1-5.3); Red Cell Distribution Width 14.2 % (12.1-15.1)
[2020-02-24 05:40] LABS: Alanine Aminotransferase 6 U/L (0-33); Albumin Level 3.1 g/dL (3.5-5.2); Alkaline Phosphatase 66 IU/L (35-105); Aspartate Amino Transferase 9 U/L (0-32); Blood Urea Nitrogen 8 mg/dL (6-20); C Reactive Protein 235.7 mg/L (0.0-4.9); Calcium 8.6 mg/dL (8.5-10.5); Carbon Dioxide 19 mmol/L (22-29); Chloride 114 mmol/L (98-107); Globulin 2.5 g/dL (1.3-4.6); Glomerular Filtration Rate 85.6 mL/min (90-130); Glucose 88 mg/dL (65-115); Magnesium 2.2 mg/dL (1.7-2.3); Osmolality Calculated 287 mOsm/kg (285-295); Phosphorus 2.9 mg/dL (2.5-4.5); Procalcitonin 6.53 ng/mL (0-0.5); Sodium 141 mmol/L (136-145); Total Bilirubin 0.2 mg/dL (0.15-1.2); Total Protein 5.6 g/dL (6.6-8.7)
[2020-02-24 05:49] LABS: Anion Gap 11.8 (5-19); Potassium 3.8 mmol/L (3.5-5.1)
[2020-02-24 07:24] LABS: Coronavirus Lab Test PTC NOT DETECTED
--- NOTE | 2020-02-24 08:00 | CT_ITS ---
WS: [id number] CTA OF THE CHEST WITH PULMONARY EMBOLISM PROTOCOL TECHNIQUE: High-resolution contrast enhanced CTA of the chest with coronal and sagittal reformatted i mages with pulmonary embolism protocol. MIP images are also reviewed. CLINICAL INFORMATION: sob COMPARISON: None. DLP: 502.[address] scans at [facility] use at least one of these dose optimization techniques: automat ed exposure control; mA and/or kV adjustment per patient size (includes targeted exams where dose is matched to clinical indication); or iterative reconstruction. FINDINGS: Proximal main pulmonary arteries are normal. Segmental and subsegmental pulmonary arteries appear pat ent. No evidence of pulmonary embolus. Postoperative changes at the GE junction. Normal caliber thora cic aorta. Small left pleural effusion with patchy consolidative infiltrates left lower lobe consistent with pne umonia. Additional airspace infiltrates with air bronchograms about the left hilum and left upper lob e consistent with pneumonia. Trace pleural fluid and atelectasis right lower lobe. Adrenal glands are normal. CT/CT angio chest PE protcl [id number] IMPRESSION: 1. No evidence for pulmonary embolus. 2. Left lower lobe and perihilar pneumonia with airspace infiltrates and air b ronchograms. 3. Small left pleural effusion. 4. Moderate esophageal hiatal hernia with postoperative changes at the GE junc tion.
[2020-02-24] MEDS: iohexol 350 mg/mL 100 mL Btl IV (08:17)
[2020-02-24] MEDS: oxybutynin chloride XL 5 MG TABLET 10 MG PO ×2 (08:57→17:53)
[2020-02-24] MEDS: pantoprazole DR 40 mg Tablet PO (08:57)
[2020-02-24] MEDS: gabapentin 400 mg Capsule PO (08:57)
[2020-02-24] MEDS: fluticasone nasal spray 16gm Btl 1 SPRAY INTRANASAL (08:57)
[2020-02-24] MEDS: zonisamide 100 MG Capsule 400 MG PO (08:58)
[2020-02-24] MEDS: topiramate 25 mg Tablet 50 MG PO (08:58)
[2020-02-24] MEDS: FUROsemide 10 mg/mL SDV 4mL 40 MG IVP (11:33)
[2020-02-24] MEDS: potassium chloride ER 10 mEq Tablet 40 MEQ PO (11:34)
[2020-02-24] MEDS: SUMAtriptan 25 mg Tablet 50 MG PO (12:43)
--- NOTE | 2020-02-24 13:36 | P.PN_ITS ---
Subjective Subjective: Interval history: This morning patient was examined in the ICU, she sitting up in bed, doing overall well, no requiring oxygen, afebrile overnight, states that she still has some shortness of breath, some chest discomfort, no lightheadedness, no dizziness, no cough, is complaining of a headache, would like to try some Imitrex for headache Vitals/I&O/Wt Last Vital Signs Temp 98.7 F 02/24/20 07:00 Pulse 100 02/24/20 08:24 Resp 19 H 02/24/20 08:24 BP 132/87 02/24/20 07:00 Pulse Ox 94 02/24/20 08:24 02/23/20 02/24/20 02/24/20 22:59 06:59 14:59 Intake Total 0 / 220 220 / 440 60 / 60 Output Total 800 / 800 1300 / 2100 Balance -800 / -580 -1080 / -1660 60 / 60 Physical Exam Narrative: EXAM NARRATIVE: Has episodes of delirium, episodes of confusion, but at other times answers questions appropriately Const: COMMON NORMALS: no acute distress and patient oriented x3 GENERAL APPEARANCE: ill appearing ORIENTATION/CONSCIOUSNESS: Yes awake, Yes oriented to person and Yes confused; not oriented to place and not oriented to time HENMT: COMMON NORMALS: normocephalic HEAD & SCALP: normocephalic Eye: COMMON NORMALS: Equal, round and reactive pupils present and EOMs intact bilaterally PUPIL: Yes Equal, round and reactive pupils present Neck/C-Spine: COMMON NORMALS: no meningeal signs and no JVD Lymph: LYMPHATIC: no lymphadenopathy noted Chest: COMMONS NORMALS: normal inspection of the chest Resp: COMMON NORMALS: normal respiratory effort, No retractions, No use of accessory muscles and clear to auscultation bilaterally EFFORT & INSPECTION: Yes able to speak in complete sentences, Yes tachypneic, Yes labored, Yes Actively coughing and Yes retractions AUSCULTATION: clear to auscultation bilaterally Cardio: COMMON NORMALS: no JVD, regular rate, regular rhythm, S1 normal heart sound present and S2 normal heart sound present RATE: regular rate RHYTHM: regular rhythm HEART SOUNDS: S1 normal heart sound present and S2 normal heart sound present GI: COMMON NORMALS: Normal to inspection, nondistended, normoactive bowel sounds present, Soft to palpation, non-tender, No hepatosplenomegaly present, no masses and no bruits PALPATION: Yes Soft to palpation and Yes No hepatosplenomegaly present : COMMON NORMALS: Yes no CVA tenderness BLADDER/KIDNEY EXAM: Yes no CVA tenderness Back/Pelvis: COMMON NORMALS: no CVA tenderness Extremity: COMMON NORMALS: capillary refill normal, no clubbing, cyanosis or edema, no calf tenderness and no pedal edema Neuro: COMMON NORMALS: patient oriented x3 SENSORIUM/ORIENTATION: Yes oriented to person, No oriented to place, No oriented to time and Yes fluctuating sensorium MENINGEAL SIGNS: Yes no meningeal signs and No nuccal rigidity MOTOR EXAM: 5/5 motor strength present throughout OTHER: Difficult to follow neurologic exam Psych: COMMON NORMALS: mental status grossly normal Urinary Catheter Management^: Renteria: Cath Placed During This Visit: yes Reason for Continuing Indwelling Catheter: Accurate Measurement of Urinary Output in Critically Ill Patients Urinary Catheter Date of Insertion: 02/22/20 Urinary Catheter Time of Insertion: 13:27 Data : 02/24/20 05:06 02/24/20 05:06 Micro: Microbiology 02/22/20 15:15 MRSA Culture - Final Nose 02/22/20 09:30 Blood Culture - Preliminary Blood NEGATIVE TO DATE 02/22/20 09:35 Blood Culture - Preliminary Blood NEGATIVE TO DATE A&P Assessment and plan (1) Acute respiratory failure with hypoxia: -Secondary to bilateral lower lobe pneumonia, atypical pneumonia, risk of COVID-19 -Risk factors include COPD, history of tracheostomy, history of sepsis and mechanical ventilation in the past, history of seizures secondary to sepsis -Concern for sepsis given tachycardia, tachypnea, fever, leukocytosis, alte ration of her mentation -Currently mentation is back to baseline, intermittent episode tachycardia, no tachypnea, no fevers, leukocytosis improved, mentation back to baseline -first COVID-19 test was negative Plan: -I believe patient needs intensive care monitoring due to concerns for sepsis -Neurochecks -Renteria in place -Patient is fluid responsive, SVI delta 47 -Monitor respiratory status closely -Oxygen therapy -COVID-19 precautions, will await second CT chest -Obtain CT angio chest shows Small left pleural effusion with patchy consolidative infiltrates left lower lobe consistent with pneumonia. Additional airspace infiltrates with air bronchograms about the left hilum and left upper lobe consistent with pneumonia. Trace pleural fluid and atelectasis right lower lobe. -Continue azithromycin and Rocephin -Sputum cultures, blood cultures, inflammatory markers -Lovenox for DVT prophylaxis -Full code -Once second covid testing is negative, will move out of ICU Status: Acute (2) Septic encephalopathy: -Secondary to bilateral lobe pneumonia, atypical pneumonia, risk of COVID- 19 -Mentation improved, alert oriented x3 Status: Acute (3) Chronic migraine: Status: Acute (4) History of tracheostomy: Status: Acute (5) COPD (chronic obstructive pulmonary disease): Status: Acute (6) Fever: Status: Acute Qualifiers: Fever type: due to other condition Qualified Code(s): R50.81 - Fever presenting with conditions classified elsewhere (7) Mixed urinary incontinence due to female genital prolapse: Status: Acute (8) Chronic migraine without aura, intractable, with status migrainosus: Status: Acute (9) Generalized epilepsy: Status: Acute (10) Peripheral neuropathy: Status: Acute (11) OCD (obsessive compulsive disorder): Status: Acute (12) Bipolar 2 disorder: Status: Acute (13) Sepsis: Status: Acute Attestations Medical Necessity Statement*: Patient requires hospitalization for acute respiratory failure secondary to left lower lobe pneumonia Coding Level of Care Code Acute Steward/Stewardess Tourist Class for g Fwd Exam Comprehensive Diagnoses Acute respiratory failure with hypoxia J96.01 Septic encephalopathy G93.41 Chronic migraine G43.709 History of tracheostomy Z98.890 COPD (chronic obstructive pulmonary disease) J44.9 Fever R50.81 Fever type: due to other condition Mixed urinary incontinence due to female genital prolapse N39.46; N81.9 Chronic migraine without aura, intractable, with status migrainosus G43.711 Generalized epilepsy G40.309 Peripheral neuropathy G62.9 OCD (obsessive compulsive disorder) F42.9 Bipolar 2 disorder F31.81 Sepsis A41.9
[2020-02-24] MEDS: cefTRIAXone 1,000 MG in sodium chloride 0.9% (plus) 50 ML 100 MG IV (13:56)
[2020-02-24] MEDS: enoxaparin 40 mg/0.4 mL Syringe SUBCUT (13:57)
[2020-02-24] MEDS: azithromycin 500 MG in sodium chloride 0.9% 250 ML 250 MG IV (14:51)
[2020-02-24] MEDS: metoclopramide 5 mg/mL SDV 2 mL 10 MG IVP (18:44)
[2020-02-24 20:23] LABS: Coronavirus Lab Test PTC Negative
[2020-02-24] MEDS: ziprasidone hcl 60 mg Capsule 120 MG PO (21:35)
[2020-02-24] MEDS: lamoTRIgine 100 mg Tablet 400 MG PO (21:35)
[2020-02-25] VITALS (11 sets, daily range): BP systolic 98–130; BP diastolic 62–91; PULSE 74–110; RESP 12–31; TEMP 36.6–37.3; O2SAT 92–95
[2020-02-25] MEDS: venlafaxine ER (24HR) 75 mg Capsule PO (04:55)
[2020-02-25 05:28] LABS: Alanine Aminotransferase 6 U/L (0-33); Albumin Level 3.4 g/dL (3.5-5.2); Alkaline Phosphatase 105 IU/L (35-105); Anion Gap 13.5 (5-19); Aspartate Amino Transferase 8 U/L (0-32); Blood Urea Nitrogen 8 mg/dL (6-20); C Reactive Protein 89.2 mg/L (0.0-4.9); Calcium 8.8 mg/dL (8.5-10.5); Carbon Dioxide 21 mmol/L (22-29); Chloride 108 mmol/L (98-107); Globulin 3.1 g/dL (1.3-4.6); Glomerular Filtration Rate 102.3 mL/min (90-130); Glucose 98 mg/dL (65-115); Magnesium 2.5 mg/dL (1.7-2.3); Osmolality Calculated 284 mOsm/kg (285-295); Phosphorus 3.5 mg/dL (2.5-4.5); Potassium 3.5 mmol/L (3.5-5.1); Sodium 139 mmol/L (136-145); Total Bilirubin 0.2 mg/dL (0.15-1.2); Total Protein 6.5 g/dL (6.6-8.7)
[2020-02-25 06:02] LABS: Basophils # 0.1 10^3/uL (0.0-0.1); Eosinophils # 0.1 10^3/uL (0.0-0.8); Hematocrit 38.7 % (37.0-47.0); Hemoglobin 12.3 g/dL (11.5-15.3); Lymphocytes # 1.4 10^3/uL (0.8-4.8); Lymphocytes % 14.7 %; Mean Corpuscular HGB Conc 31.8 g/dL (30.0-36.0); Mean Corpuscular Hemoglobin 29.7 pg (28.0-34.0); Mean Corpuscular Volume 93.5 fL (81-99); Monocytes # 0.5 10^3/uL (0.2-0.9); Monocytes % 5.8 %; Neutrophils # 7.03 10^3/uL (1.8-7.7); Neutrophils % 75.2 %; Nucleated Red Blood Cells % 0 %; Platelet Count 266 10^3/cmm (130-400); Red Blood Count 4.14 10^6/uL (4.1-5.3); Red Cell Distribution Width 13.8 % (12.1-15.1); White Blood Count 9.3 10^3/uL (4.0-10.0)
[2020-02-25 06:36] LABS: Procalcitonin 2.91 ng/mL (0-0.5)
--- NOTE | 2020-02-25 08:50 | PC.SOCIAL ---
IMM Page 2 of IMM explained to patient. Initialed, dated, and timed and placed in chart. Copy provided to patient. Also explained IMM to spouse by phone.
[2020-02-25] MEDS: pantoprazole DR 40 mg Tablet PO (09:49)
[2020-02-25] MEDS: topiramate 25 mg Tablet 50 MG PO (09:49)
[2020-02-25] MEDS: zonisamide 100 MG Capsule 400 MG PO (09:49)
[2020-02-25] MEDS: oxybutynin chloride XL 5 MG TABLET 10 MG PO ×2 (09:49→17:34)
[2020-02-25] MEDS: gabapentin 400 mg Capsule PO (09:49)
[2020-02-25] MEDS: fluticasone nasal spray 16gm Btl 1 SPRAY INTRANASAL (09:50)
[2020-02-25] MEDS: SUMAtriptan 25 mg Tablet 50 MG PO ×2 (09:53→17:32)
--- NOTE | 2020-02-25 10:07 | PM.PN ---
Subjective Subjective: Interval history: Afebrile, hemodynamically stable, no acute overnight events, COVID negative x 2 Medications: Reviewed: Yes Vitals/I&O/Wt Last Vital Signs Temp 98.5 F 02/25/20 04:25 Pulse 83 02/25/20 04:25 Resp 22 H 02/25/20 04:25 BP 113/78 02/25/20 04:25 Pulse Ox 92 02/25/20 04:25 02/24/20 02/25/20 02/25/20 22:59 06:59 14:59 Intake Total 240 / 420 120 / 540 300 / 300 Output Total 2800 / 2800 1000 / 3800 Balance -2560 / -2380 -880 / -3260 300 / 300 Physical Exam Narrative: EXAM NARRATIVE: GEN: Awake, alert and oriented, no acute distress CVS: S1S2 N RS: CTA B/L Abd: Soft, nt/nd , bs+ SULFIDE HEAD OPERATOR: no focal neuro deficits Urinary Catheter Management^: Renteria: Cath Placed During This Visit: yes Reason for Continuing Indwelling Catheter: Accurate Measurement of Urinary Output in Critically Ill Patients Urinary Catheter Date of Insertion: 02/22/20 Urinary Catheter Time of Insertion: 13:27 Data : 02/25/20 05:04 02/25/20 04:40 A&P Assessment and plan (1) Acute respiratory failure with hypoxia: -There is left lower lobe pneumonia with mild pleural effusion, likely parapneumonic -no evidence of PE on recent CTA -Concern for sepsis given tachycardia, tachypnea, fever, leukocytosis, alteration of her mentation upon admission, now resolved - COVID 19 negative x 2 - Currently on room air, home 02 evaluation -Continue Rocephin to complete 5 day course for Community acquired pneumonia. D/c azithromycin as has had 1500mg already. Check urine legionella antigen stat, if positive will be an indication to continue atypical coverage for longer. -Blood cx negative to date, MRSA nasal PCR negative -Lovenox for DVT prophylaxis - Transfer out of ICU Status: Acute (2) Septic encephalopathy: -Secondary to left lower lobe pneumonia -Mentation improved, alert oriented x3 Status: Acute (3) Chronic migraine: continue outpatient medication regimen Status: Acute (4) History of tracheostomy: Status: Acute (5) COPD (chronic obstructive pulmonary disease): Status: Acute Qualifiers: COPD type: unspecified COPD Qualified Code(s): J44.9 - Chronic obstructive pulmonary disease, unspecified (6) Fever: Status: Acute Qualifiers: Fever type: due to other condition Qualified Code(s): R50.81 - Fever presenting with conditions classified elsewhere (7) Mixed urinary incontinence due to female genital prolapse: Status: Acute (8) Chronic migraine without aura, intractable, with status migrainosus: Status: Acute (9) Generalized epilepsy: Status: Acute (10) Peripheral neuropathy: Status: Acute Qualifiers: Peripheral neuropathy type: polyneuropathy, unspecified Qualified Code(s): G62.9 - Polyneuropathy, unspecified (11) OCD (obsessive compulsive disorder): Status: Acute Qualifiers: Obsessive-compulsive disorder type: unspecified Qualified Code(s): F42.9 - Obsessive-compulsive disorder, unspecified (12) Bipolar 2 disorder: Status: Acute (13) Sepsis: Status: Acute Qualifiers: Sepsis acute organ dysfunction status: with acute organ dysfunction Sepsis type: sepsis due to unspecified organism Severe sepsis acute organ dysfunction type: encephalopathy Severe sepsis shock status: without septic shock Qualified Code(s): A41.9 - Sepsis, unspecified organism; R65.20 - Severe sepsis without septic shock; G93.40 - Encephalopathy, unspecified (14) Community acquired pneumonia: Home 02 evalutaion Status: Acute Qualifiers: Laterality: left Lung location: lower lobe of lung Qualified Code(s): J18.9 - Pneumonia, unspecified organism Attestations Medical Necessity Statement*: needs continued monitoring given severe sepsis upon admission, transfer out of ICU Coding Level of Care Code Acute Construction Quality Control Manager for [facility] F[facility] Diagnoses Acute respiratory failure with hypoxia J96.01 Septic encephalopathy G93.41 Chronic migraine G43.709 History of tracheostomy Z98.890 COPD (chronic obstructive pulmonary disease) J44.9 COPD type: unspecified COPD Fever R50.81 Fever type: due to other condition Mixed urinary incontinence due to female genital prolapse N39.46; N81.9 Chronic migraine without aura, intractable, with status migrainosus G43.711 Generalized epilepsy G40.309 Peripheral neuropathy G62.9 Peripheral neuropathy type: polyneuropathy, unspecified OCD (obsessive compulsive disorder) F42.9 Obsessive-compulsive disorder type: unspecified Bipolar 2 disorder F31.81 Sepsis A41.9; R65.20; G93.40 Sepsis acute organ dysfunction status: with acute organ dysfunction Sepsis type: sepsis due to unspecified organism Severe sepsis acute organ dysfunction type: encephalopathy Severe sepsis shock status: without septic shock Community acquired pneumonia J18.9 Laterality: left Lung location: lower lobe of lung
[2020-02-25] MEDS: enoxaparin 40 mg/0.4 mL Syringe SUBCUT (14:17)
[2020-02-25] MEDS: cefTRIAXone 1,000 MG in sodium chloride 0.9% (plus) 50 ML 100 MG IV (14:18)
[2020-02-25] MEDS: lamoTRIgine 100 mg Tablet 400 MG PO (21:30)
[2020-02-25] MEDS: ziprasidone hcl 60 mg Capsule 120 MG PO (21:30)
[2020-02-26 04:00] VITALS: BP 115/77; PULSE 83; RESP 18; TEMP 36.9; O2SAT 95
[2020-02-26 05:01] LABS: Basophils # 0.1 10^3/uL (0.0-0.1); Basophils % 1.2 %; Eosinophils # 0.1 10^3/uL (0.0-0.8); Eosinophils % 0.8 %; Hematocrit 38.8 % (37.0-47.0); Hemoglobin 12.4 g/dL (11.5-15.3); Lymphocytes # 1.7 10^3/uL (0.8-4.8); Lymphocytes % 17.6 %; Mean Corpuscular Hemoglobin 29.5 pg (28.0-34.0); Mean Corpuscular Volume 92.4 fL (81-99); Mean Platelet Volume 9.6 fL (7.4-10.4); Monocytes # 0.8 10^3/uL (0.2-0.9); Monocytes % 8.5 %; Neutrophils # 6.39 10^3/uL (1.8-7.7); Neutrophils % 65.8 %; Nucleated Red Blood Cells % 0 %; Platelet Count 325 10^3/cmm (130-400); Red Cell Distribution Width 13.9 % (12.1-15.1); White Blood Count 9.7 10^3/uL (4.0-10.0)
[2020-02-26 05:27] LABS: Alanine Aminotransferase 6 U/L (0-33); Albumin Level 3.7 g/dL (3.5-5.2); Alkaline Phosphatase 90 IU/L (35-105); Anion Gap 15.8 (5-19); Aspartate Amino Transferase 14 U/L (0-32); Blood Urea Nitrogen 7 mg/dL (6-20); Calcium 8.8 mg/dL (8.5-10.5); Carbon Dioxide 19 mmol/L (22-29); Chloride 109 mmol/L (98-107); Globulin 2.6 g/dL (1.3-4.6); Glomerular Filtration Rate 102.3 mL/min (90-130); Glucose 114 mg/dL (65-115); Osmolality Calculated 287 mOsm/kg (285-295); Potassium 3.8 mmol/L (3.5-5.1); Sodium 140 mmol/L (136-145); Total Bilirubin 0.2 mg/dL (0.15-1.2); Total Protein 6.3 g/dL (6.6-8.7)
[2020-02-26] MEDS: venlafaxine ER (24HR) 75 mg Capsule PO (06:09)
[2020-02-26] MEDS: SUMAtriptan 25 mg Tablet 50 MG PO (06:10)
[2020-02-26 06:47] LABS: Slide Review Slide Review Perform
[2020-02-26 07:41] VITALS: BP 118/64; PULSE 62; RESP 18; TEMP 36.4; O2SAT 97
[2020-02-26] MEDS: gabapentin 400 mg Capsule PO (08:34)
[2020-02-26] MEDS: pantoprazole DR 40 mg Tablet PO (08:34)
[2020-02-26] MEDS: oxybutynin chloride XL 5 MG TABLET 10 MG PO (08:34)
[2020-02-26] MEDS: fluticasone nasal spray 16gm Btl 1 SPRAY INTRANASAL (08:34)
[2020-02-26] MEDS: zonisamide 100 MG Capsule 400 MG PO (08:34)
[2020-02-26 11:13] VITALS: PULSE 103; RESP 17; O2SAT 95
[2020-02-26 11:16] VITALS: PULSE 103; RESP 17; O2SAT 95
[2020-02-26 11:20] VITALS: BP 132/68; PULSE 76; RESP 18; TEMP 36.2; O2SAT 95
--- NOTE | 2020-02-26 14:45 | PC.NURSE ---
Reviewed discharge instructions with patient at this time. Patient verbalized understanding of follow up appointment. Patient was [facility] with [facility] [place] [facility] name and address to follow up with for a [facility] neurologist appointment. Patient verbalized understanding of picking up her prescriptions at the pharmacy. Both IV's removed intact. Patient denies any pain. Patient is A&Ox3. Respirations even and non-labored on room air. Patient wheel chaired to private car.
[2020-02-26 15:00] VITALS: BP 132/68; PULSE 76; RESP 18; TEMP 36.2; O2SAT 95
--- NOTE | 2020-02-26 15:02 | PM.DCS ---
Discharge Providers Date of Admission: 02/22/20 12:33 Date of Discharge: February 26, 2020 Attending Provider at Admission: Giovanni Chery MD Attending Provider at Discharge: Sasha Garcia MD Primary Care Provider: Radha Blanco MD Diagnoses at Discharge Discharge Diagnosis (1) Acute respiratory failure with hypoxia: Status: Acute (2) Septic encephalopathy: Status: Acute (3) Chronic migraine: Status: Acute (4) History of tracheostomy: Status: Acute (5) COPD (chronic obstructive pulmonary disease): Status: Acute Qualifiers: COPD type: unspecified COPD Qualified Code(s): J44.9 - Chronic obstructive pulmonary disease, unspecified (6) Fever: Status: Acute Qualifiers: Fever type: due to other condition Qualified Code(s): R50.81 - Fever presenting with conditions classified elsewhere (7) Mixed urinary incontinence due to female genital prolapse: Status: Acute (8) Chronic migraine without aura, intractable, with status migrainosus: Status: Acute (9) Generalized epilepsy: Status: Acute (10) Peripheral neuropathy: Status: Acute Qualifiers: Peripheral neuropathy type: polyneuropathy, unspecified Qualified Code(s): G62.9 - Polyneuropathy, unspecified (11) OCD (obsessive compulsive disorder): Status: Acute Qualifiers: Obsessive-compulsive disorder type: unspecified Qualified Code(s): F42.9 - Obsessive-compulsive disorder, unspecified (12) Bipolar 2 disorder: Status: Acute (13) Sepsis: Status: Acute Qualifiers: Sepsis type: sepsis due to unspecified organism Sepsis acute organ dysfunction status: with acute organ dysfunction Severe sepsis acute organ dysfunction type: encephalopathy Severe sepsis shock status: without septic shock Qualified Code(s): A41.9 - Sepsis, unspecified organism; R65.20 - Severe sepsis without septic shock; G93.40 - Encephalopathy, unspecified (14) Community acquired pneumonia: Status: Acute Qualifiers: Laterality: left Lung location: lower lobe of lung Qualified Code(s): J18.9 - Pneumonia, unspecified organism Reason for Visit Reason for Visit: FEVER/MULTIPLE COMPLAINTS Hospital Course Discharge Summary: Cassie Schwartz is a 59 year old female with a past medical history of COPD, chronic intractable migraines that have not responded to multiple treatment in the past, bipolar disorder, has a history of seizures secondary to staphylococcal sepsis in the past, has a history of a tracheostomy secondary to 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 In the emergency room, patient T-max 101.7, tachycardic heart rates in the 130s, respiratory rate 20-30, saturating 92% on room air, arterial blood gas showed pH 7.42, bicarb 16.9, PO2 83, sodium 132, white blood cell count 15.7, neutrophilic 14.29, lymphopenia white blood cell count 0.5, BMP 1204, UA no significant signs of urinary tract infection, chest x-ray shows right and left perihilar infiltrates. She was diagnosed to have left-sided community-acquired pneumonia. She did have a recent history of travel to [place] for shopping therefore was COVID tested also and this PCR testing was negative x2. Her mental status improved significantly on the day of admission and likely represented toxic metabolic encephalopathy from sepsis. While on the day of admission she required some supplemental O2 via nasal cannula, since February 21 she has been off oxygen on room air. Her mental status is now back at baseline. Apart from intractable headaches which have been ongoing for the last several years and followed by neurology has an outpatient, she recovered quite well. Imitrex seemed to help somewhat with her headaches. CT of the head did not show any acute intracranial abnormalities. Her leukocytosis has now normalized. She is on room air. She is able to ambulate without assistance and no movement. She is being discharged today in much improved condition. She has thus far received ceftriaxone and azithromycin during the course of admission and is being discharged on 2 remaining days of p.o. Augmentin. Sepsis resolved by the time of discharge. She is encouraged to follow-up with her primary care provider in the next 4 to 7 days of discharge to ensure she is doing well. There is likely to be radiological delay in the clearing of her chest x-rays. On her medication list, Topamax was discontinued after reviewing last neurology note. 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: no focal neuro deficits Urinary Catheter Management^: Renteria: Cath Placed During This Visit: yes, but has since been removed by the nurse Reason for Continuing Indwelling Catheter: Decision to DC Catheter Urinary Catheter Date of Insertion: 02/22/20 Urinary Catheter Time of Insertion: 13:27 Date Urinary Catheter Removed: 02/25/20 Time Urinary Catheter Discontinued: 12:15 Discharge Data Data Completed and Pending: Completed Studies During Hospitalization Category Date Time Status CT angio chest PE protcl 96296 Urge nt Cat Scan 02/24/20 08:[address] head wo con* 7 0450 Urgent Cat Scan 02/22/20 12:52 Completed XR chest 1V steven ble [id number] Routine Exams 02/23/20 07:39 Completed XR chest 1V steven ble [id number] Urgent Exams 02/22/20 09:05 Completed Pending at discharge Category Date Time Status Blood Culture Sta t Lab 02/22/20 09:30 Results Interleukin 6 (IL -6) Serum Stat Lab 02/22/20 09:35 Received Labs from last 24 hours 02/26/20 02/26/20 04:30 04:30 WBC 9.7 RBC 4.20 Hgb 12.4 Hct 38.8 MCV 92.4 MCH 29.5 MCHC 32.0 RDW 13.9 Plt Count 325 MPV 9.6 Neut % (Auto) 65.8 Lymph % (Auto) 17.6 [place] % (Auto) 8.5 Eos % (Auto) 0.8 Baso % (Auto) 1.2 Neut # (Auto) 6.39 Lymph # (Auto) 1.7 [place] # (Auto) 0.8 Eos # (Auto) 0.1 Baso # (Auto) 0.1 Nucleated RBC % (a uto) 0 Nucleated RBCs # 0.0 Sodium 140 Potassium 3.8 Chloride 109 H Carbon Dioxide 19 L Anion Gap 15.8 BUN 7 Creatinine 0.6 GFR Calculation 102.3 Glucose 114 Calculated Osmolal ity 287 Calcium 8.8 Total Bilirubin 0.2 AST 14 ALT 6 Alkaline Phosphata se 90 Total Protein 6.3 L Albumin 3.7 Globulin 2.6 Vitals: Last Vital Signs Temp 97.2 F L 02/26/20 11:20 Pulse 76 02/26/20 11:20 Resp 18 02/26/20 11:20 BP 132/68 02/26/20 11:20 Pulse Ox 95 02/26/20 11:20 Discharge Plan Discharge Patient Disposition: Home, Self-Care Condition: Fair Prescriptions: New acetaminophen 325 mg Tablet 650 mg PO Q4H PRN (Reason: Mild Pain Or Increase Temp) Qty: 0 RF: 0 Augmentin 875-125 mg tablet 1 tab PO BID 2 Days Qty: 4 RF: 0 rizatriptan 10 mg tablet 10 mg PO DAILY PRN (Reason: migraine headache) Qty: 10 RF: 0 Continued lamotrigine [Lamictal] 200 mg tablet 400 mg PO .HS Qty: 180 RF: 0 trazodone 100 mg tablet 300 mg PO .HS PRN (Reason: sleep) Qty: 270 RF: 0 venlafaxine [Effexor XR] 75 mg capsule,extended release 24hr 75 mg PO QAM Qty: 90 RF: 0 zonisamide [Zonegran] 100 mg capsule 400 mg PO DAILY 90 Days Qty: 360 RF: 1 oxybutynin chloride 5 mg tablet extended release 24hr 10 mg PO BID Qty: 60 RF: 3 omeprazole 20 mg capsule,delayed release(DR/EC) 20 mg PO DAILY RF: 0 fluticasone propionate [Allergy Relief (fluticasone)] 50 mcg/actuation spray,suspension 1 spray INTRANASAL DAILY RF: 0 gabapentin 400 mg capsule 400 mg PO DAILY RF: 0 Ambien 10 mg tablet 10 mg PO BEDTIME RF: 0 Geodon 60 mg capsule 120 mg PO BEDTIME RF: 0 Discontinued topiramate 50 mg tablet 50 mg PO DAILY RF: 0 Discharge Orders: Discharge Order (Routine); Ordered 02/26/20 Ordered By: Sasha Garcia Referrals: Radha Blanco MD [Primary Care Provider] - 03/02/20 9:30 am (You have an hospital follow up appointment with Albert March 02 at 9:30am) Discharge Diet: Usual diet Discharge Activity: Resume usual activity Patient Instructions: Amoxicillin/Clavulanate Potassium (By mouth), Pneumonia (GEN), Pneumonia Stoplight Discharge Date/Time: 02/26/20 14:45 Discharge Attestations Time Spent in Discharge Care*: less than 30 min Quality Metrics Clinical Quality Measures During this hospital stay, did patient experience: None Coding Level of Care Code Acute Reporting Manager for g Fwd Diagnoses Acute respiratory failure with hypoxia J96.01 Septic encephalopathy G93.41 Chronic migraine G43.709 History of tracheostomy Z98.890 COPD (chronic obstructive pulmonary disease) J44.9 COPD type: unspecified COPD Fever R50.81 Fever type: due to other condition Mixed urinary incontinence due to female genital prolapse N39.46; N81.9 Chronic migraine without aura, intractable, with status migrainosus G43.711 Generalized epilepsy G40.309 Peripheral neuropathy G62.9 Peripheral neuropathy type: polyneuropathy, unspecified OCD (obsessive compulsive disorder) F42.9 Obsessive-compulsive disorder type: unspecified Bipolar 2 disorder F31.81 Sepsis A41.9; R65.20; G93.40 Sepsis type: sepsis due to unspecified organism Sepsis acute organ dysfunction status: with acute organ dysfunction Severe sepsis acute organ dysfunction type: encephalopathy Severe sepsis shock status: without septic shock Community acquired pneumonia J18.9 Laterality: left Lung location: lower lobe of lung
== END 2020-02-26 14:45 | disposition home or self-care (01) | DRG 871 ==
LOC: ER 11:57 → ICU 12:51 → MEDSURG 02-25 13:28
PROVIDERS: Family Medicine; Admitting Provider Family Medicine; Family Provider Family Medicine; PCP Family Medicine; Visit Provider Student in an Organized Health Care Education/Training Program
DX: A41.9 Sepsis, unspecified organism (principal); J18.9 Pneumonia, unspecified organism; G93.41 Metabolic encephalopathy; J96.01 Acute respiratory failure with hypoxia; F31.81 Bipolar II disorder; J44.0 Chronic obstructive pulmonary disease with (acute) lower respiratory infection; G40.309 Generalized idiopathic epilepsy and epileptic syndromes, not intractable, without status epilepticus; G62.9 Polyneuropathy, unspecified; F42.9 Obsessive-compulsive disorder, unspecified; Z98.84 Bariatric surgery status; Z87.891 Personal history of nicotine dependence
CPT/HCPCS: 12345; 36415; 36600; 51702; 70450; 71045; 71275; 80053; 81003; 82728; 82803; 83520; 83605; 83615; 83690; 83735; 83880; 84100; 84145; 84443; 84484; 85025; 85378; 85384; 85610; 86140; 86403; 87040; 87449; 87635; 87641; 87804; 93005; 94664; 96372; 96375; 99284; J0456; J0696; J1650; J1940; J2543; J2765; J7030; J7040; J7050; Q9967

== ENCOUNTER → 2020-03-22 14:03 | Outpatient (BNVA) | payer MEDICARE, SELFPAY | PROVIDERS: Family Provider Family Medicine; PCP Family Medicine; Visit Provider Obstetrics & Gynecology | DX: R35.0 Frequency of micturition (principal) | CPT/HCPCS: 81000 ==

== ENCOUNTER → 2020-04-26 09:00 | Outpatient (BNVA) | payer MEDICARE, SELFPAY | PROVIDERS: Family Provider Family Medicine; PCP Family Medicine; Visit Provider Nurse Practitioner Family | DX: R35.0 Frequency of micturition (principal); R39.15 Urgency of urination | CPT/HCPCS: 81001 ==

== ENCOUNTER → 2020-04-27 09:27 | Outpatient (BNVA) | payer MEDICARE, SELFPAY | PROVIDERS: Family Provider Family Medicine; PCP Family Medicine; Visit Provider Nurse Practitioner | DX: F31.81 Bipolar II disorder (principal); F42.9 Obsessive-compulsive disorder, unspecified | CPT/HCPCS: 99213 ==

== ENCOUNTER 2020-06-03 13:07 | Outpatient (CLI) | payer MEDICARE, SELFPAY ==
--- NOTE | 2020-06-03 13:14 | MM_ITS ---
WS: [id number] BILATERAL DIGITAL SCREENING MAMMOGRAPHY WITH CAD CLINICAL INFORMATION: SCREENING HISTORY: Screening mammogram. No current complaints. COMPARISON: TECHNIQUE: Bilateral CC and MLO views. FINDINGS: The breasts are composed of heterogeneous fibroglandular density tissue, which can limit the detectio n of small underlying mass lesions. No suspicious mass, asymmetry, calcifications, or architectural d istortion. No evidence of malignancy. Punctate and vascular calcifications. MM/[place] [id number] IMPRESSION: BI-RADS: 2-Benign FOLLOW UP: 1 Year Follow-up Recommend return to annual screening mammography.
== END 2020-06-03 13:08 | disposition home or self-care (01) ==
PROVIDERS: PCP Family Medicine; Visit Provider Nurse Practitioner Family
DX: Z12.31 Encounter for screening mammogram for malignant neoplasm of breast (principal)
CPT/HCPCS: 77067

== ENCOUNTER → 2020-06-08 07:59 | Outpatient (BNVA) | payer MEDICARE, SELFPAY | PROVIDERS: PCP Family Medicine; Visit Provider Nurse Practitioner | DX: F31.81 Bipolar II disorder (principal); F42.9 Obsessive-compulsive disorder, unspecified; Z63.4 Disappearance and death of family member; F41.1 Generalized anxiety disorder | CPT/HCPCS: 99214 ==

== ENCOUNTER 2020-06-08 16:57 | Outpatient (CLI) | payer MEDICARE, SELFPAY ==
--- NOTE | 2020-06-08 17:06 | XR_ITS ---
WS: [id number] Exam: XR ankle RT min 3V* [id number] Date/Time of Exam: 06/08/2020 5:07 PM Reason For Exam: RIGHT ANKLE JOINT PAIN Findings: No fracture or dislocation noted. Normal soft tissues. Mild DJD at the ankle mortise. XR/XR ankle RT min 3V* [id number] IMPRESSION: 1. No obvious fracture or dislocation.
--- NOTE | 2020-06-08 17:07 | XR_ITS ---
WS: [id number] RIGHT FOOT: 3 VIEW(S) TECHNIQUE: AP, oblique and lateral. HISTORY: RIGHT FOOT PAIN COMPARISON: None available. No acute fracture or dislocation. Normal tarsal/metatarsal alignment. No soft tissue abnormality or bone destruction. Hammertoe deformities. XR/XR foot RT min 3V* [id number] IMPRESSION: Normal RIGHT foot.
== END 2020-06-08 16:58 | disposition home or self-care (01) ==
LOC: RAD 16:59
PROVIDERS: PCP Family Medicine; Visit Provider Nurse Practitioner Family
DX: M25.571 Pain in right ankle and joints of right foot (principal); M79.671 Pain in right foot
CPT/HCPCS: 73610; 73630

== ENCOUNTER → 2020-07-20 07:56 | Outpatient (BNVA) | payer MEDICARE, SELFPAY | PROVIDERS: PCP Family Medicine; Visit Provider Nurse Practitioner | DX: F31.81 Bipolar II disorder (principal); F42.9 Obsessive-compulsive disorder, unspecified; Z63.4 Disappearance and death of family member | CPT/HCPCS: 99213 ==

== ENCOUNTER 2020-08-18 11:55 | Outpatient (CLI) | payer MEDICARE, SELFPAY ==
--- NOTE | 2020-08-18 | XR_ITS ---
WS: [id number] FOOT RIGHT TECHNIQUE: 3 views of the right foot CLINICAL INFORMATION: FOOT PAIN COMPARISON: None. FINDINGS: Moderate diffuse soft tissue edema. No evidence of acute fracture or dislocation. Normal tarsal metat arsal alignment. Normal calcaneus. Normal visualized talar dome. No acute fractures. XR/XR foot RT min 3V* [id number] IMPRESSION: Moderate diffuse soft tissue edema. No acute fractures.
== END 2020-08-18 11:56 | disposition home or self-care (01) ==
LOC: RADWPI 11:58
PROVIDERS: PCP Nurse Practitioner Family; Visit Provider Nurse Practitioner Family
DX: M79.671 Pain in right foot (principal); R60.0 Localized edema
CPT/HCPCS: 73630

== ENCOUNTER 2020-09-11 11:19 | Emergency (ER) | payer MEDICARE, SELFPAY ==
[2020-09-11 11:35] VITALS: BP 108/72; PULSE 78; RESP 18; TEMP 36.3; O2SAT 99
--- NOTE | 2020-09-11 11:49 | XRR_ITS ---
PROCEDURE INFORMATION: Exam: XR Right Foot Complete Exam date and time: 09/11/2020 11:49 AM Age: 60 years old Clinical indication: Pain; Foot; Right; Additional info: Injury/swelling/pain TECHNIQUE: Imaging protocol: XR Right foot. Views: 3 or more views. COMPARISON: No relevant prior studies available. FINDINGS: Bones/joints: Negative for acute bony abnormality. Soft tissues: Normal. XR/XR foot RT min 3V* [id number] IMPRESSION: No acute findings.
[2020-09-11 11:52] VITALS: O2SAT 98
--- NOTE | 2020-09-11 11:59 | ED_ITS ---
HPI - Extremity Problem General: Chief complaint: Extremity Injury, Lower Stated complaint: Right foot pain/injury Time Seen by Provider: 09/11/20 11:28 Source: patient Mode of arrival: ambulatory Limitations: no limitations History of Present Illness: HPI Narrative: Patient is a nice 60-year-old female who presents to ED today along with her for evaluation of right foot pain. Patient tells me she initially injured her foot on 08/18 after a twisting injury. Patient was evaluated and had negative x-rays at that time. Patient tells me she then reinjured it on 08/22. She states swelling and pain have never subsided since the first injury. She complains of pain at rest and worsening pain with weight-bearing. She reports her foot is swollen. MD Complaint: extremity pain Onset (ago): week(s) Pain Consistency: constant Location: right and lower extremity Radiation: none Exacerbating factors: weight bearing and walking Associated symptoms: Reports no associated symptoms Review of Systems Musc: Reports: extremity pain (R foot) and extremity swelling (R foot) Neuro: Denies: numbness in extremities or sensory changes PFS ED PFSH: Medical History (Updated 09/11/20 @ 12:41 by JENY Mahmood) Bereavement, uncomplicated Bipolar 2 disorder Frequency of urination Generalized epilepsy Mixed urinary incontinence due to female genital prolapse OAB (overactive bladder) OCD (obsessive compulsive disorder) ALEKSANDER (stress urinary incontinence, female) Urgency of urination Surgical History History of tracheostomy History of vaginal surgery posterior colporrhaphy augmented with porcine graft and mid urethral sling 07/10/2018- per Dr. Canela at [facility] No pertinent past surgical history S/P arthroscopic knee surgery 2003- bilateral knees S/P gastric bypass S/P hysterectomy states she still has her ovaries S/P partial resection of colon S/P tubal ligation Status post left knee replacement 2003 Status post tracheostomy Family History Brother Diabetes Mother Hyperlipidemia Stroke Breast cancer Father CAD (coronary artery disease) Other No pertinent family history Denies family history of Hypertension Social History Smoking and tobacco status: former smoker Alcohol intake: former History of recent travel: Yes (travels from [facility]) Physical Exam Const: COMMON NORMALS: no acute distress, average body habitus, patient oriented x3, no limitations, healthy appearing, alert and well nourished Extremity: GENERAL: Yes normal exam except as noted OTHER: pt has tenderness to dorsal medial R foot and into arch; there is mild swelling and warmth present Neuro: COMMON NORMALS: patient oriented x3, moves all extremities, no focal motor deficits and no sensory deficits noted SENSORIUM/ORIENTATION: Yes alert Course Vital Signs: Vital signs: Vital Signs Temperature 97.3 F L 09/11/20 11:35 Pulse Rate 78 09/11/20 11:35 Respiratory Rate 18 09/11/20 11:35 Blood Pressure 108/72 09/11/20 11:35 Pulse Oximetry 98 09/11/20 11:52 MDM - Extremity (Nontraumatic) MDM Narrative: Medical decision making narrative: I think her XR is suspicious for a Lisfranc injury. I informed patient that ultimately I feel she would benefit from a podiatry specialty consult. I informed her that this may not be what is causing her discomfort and ultimately the hogshead weigher would need to evaluate her. In the meantime I will place her in a boot and have her non weightbearing with instructions to ice and elevate the extremity. Information placed with case management. Imaging Data^: XR R foot: My impression: widening of space between 1-2 metatarsal bases and abnormal alignment of medial edge of 4th metatarsal in regards to medial cuneiform raising suspicion for Lisfranc injury Radiologist's impression: [address] [address] XRay Report Signed Patient: Cassie Schwartz AnnUnit #: [id number] : 1960Acct#:[id number] Age/Sex: 60 / FADM Date: 09/11/20 Loc: ERRoom/Bed: Attending Dr: Ordering Provider/Ordering MD: Jenna Telles Date of Service: 09/11/20 Procedure(s): XR foot RT min 3V* [id number] Accession Number(s): [id number] Report Number: [id number] PROCEDURE INFORMATION: Exam: XR Right Foot Complete Exam date and time: 09/11/2020 11:49 AM Age: 60 years old Clinical indication: Pain; Foot; Right; Additional info: Injury/swelling/pain TECHNIQUE: Imaging protocol: XR Right foot. Views: 3 or more views. COMPARISON: No relevant prior studies available. FINDINGS: Bones/joints: Negative for acute bony abnormality. Soft tissues: Normal. XR/XR foot RT min 3V* [id number] IMPRESSION: No acute findings. Dictated By:Migue Macedo Signed By:Eva Macedo Date/Time:09/11/20 1233 DD/ 1231 Discharge Plan Discharge Patient Disposition: Home Clinical Impression: Lisfranc's sprain Qualifiers: Encounter type: initial encounter Laterality: right Qualified Code(s): S93.621A - Sprain of tarsometatarsal ligament of right foot, initial encounter Condition: Stable Prescriptions: New acetaminophen-codeine 300-15 mg tablet 1 tab PO Q6H PRN (Reason: pain) Qty: 14 RF: 0 No Action fluticasone propionate [Allergy Relief (fluticasone)] 50 mcg/actuation spray,suspension 1 spray INTRANASAL DAILY RF: 0 zonisamide [Zonegran] 100 mg capsule 400 mg PO DAILY 90 Days Qty: 360 RF: 1 oxybutynin chloride 15 mg tablet extended release 24hr 15 mg PO BID Qty: 180 RF: 3 gabapentin 400 mg capsule 400 mg PO .COMPLEX Qty: 360 RF: 2 lamotrigine [Lamictal] 200 mg tablet 400 mg PO .HS Qty: 180 RF: 0 trazodone 100 mg tablet 300 mg PO .HS PRN (Reason: sleep) Qty: 270 RF: 0 venlafaxine [Effexor XR] 75 mg capsule,extended release 24hr 75 mg PO QAM Qty: 90 RF: 0 Geodon 60 mg capsule 120 mg PO BEDTIME Qty: 180 RF: 0 Ambien 10 mg tablet 10 mg PO BEDTIME Qty: 30 RF: 2 clonazepam 0.5 mg tablet 0.5 mg PO BID PRN (Reason: anxiety) Qty: 60 RF: 0 acetaminophen 325 mg Tablet 650 mg PO Q4H PRN (Reason: Mild Pain Or Increase Temp) Qty: 0 RF: 0 rizatriptan 10 mg tablet 10 mg PO DAILY PRN (Reason: migraine headache) Qty: 10 RF: 0 Discharge Orders: Discharge ED (Routine); Ordered 09/11/20 Ordered By: Jenna Telles Referrals: Lauri Goldman DPM [Physician] - Albert So NP [Primary Care Provider] - Activity Restrictions/Additional Instructions: As discussed case management should contact you next week for your appointment with podiatry. Continue wearing the boot, ice, and elevate the foot as well as being non-weightbearing until this appointment. Coding Level of Care Code ED Dispatcher [employer] for Chg Fwd Exam Expanded Problem Focused
[2020-09-11 13:13] VITALS: BP 136/81; PULSE 65; RESP 16; O2SAT 99
--- NOTE | 2020-09-13 10:59 | DCPLANNER ---
livestock farm manager had message to schedule a follow up appointment for patient with ortho. livestock farm manager called the ortho clinic, spoke with Priyanka, gave clinic patients information. livestock farm manager was told that patients information would be printed and reviewed. Clinic will call patient with appointment information.
--- NOTE | 2020-09-14 12:19 | DCPLANNER ---
Patient has a follow up appointment scheduled for Sunday, September 20, 2020 at 8:[address] Goldman at [facility]. Clinic will call patient with appointment information.
--- NOTE | 2020-10-28 14:56 | DCPLANNER ---
Patient had a follow up appointment scheduled for 09.20.[address] Goldman at [facility] - patient did attend appointment.
== END 2020-09-11 13:15 | disposition home or self-care (01) ==
PROVIDERS: Emergency Provider Physician Assistant; PCP Nurse Practitioner Family
DX: S93.621A Sprain of tarsometatarsal ligament of right foot, initial encounter (principal); Z87.891 Personal history of nicotine dependence; X50.1XXA Overexertion from prolonged static or awkward postures, initial encounter
CPT/HCPCS: 12345; 73630; 99282; 99283; E0114; L4361

== ENCOUNTER → 2020-09-20 08:14 | Outpatient (BNVA) | payer MEDICARE, SELFPAY | PROVIDERS: PCP Nurse Practitioner Family; Referring Provider Physician Assistant; Visit Provider Podiatrist Foot & Ankle Surgery | DX: S93.324A Dislocation of tarsometatarsal joint of right foot, initial encounter (principal); W19.XXXA Unspecified fall, initial encounter; M79.671 Pain in right foot | CPT/HCPCS: 73630 ==

== ENCOUNTER 2020-09-23 09:07 | Outpatient (CLI) | payer MEDICARE, SELFPAY ==
--- NOTE | 2020-09-23 09:30 | CT_ITS ---
WS: [id number] CT RIGHT FOOT, NONCONTRAST WITH 3-D REFORMATS. HISTORY: foot fracture/ dislocation Technique: All CT scans at [facility] use at least one of these dose optimization techniq ues: automated exposure control; mA and/or kV adjustment per patient size (includes targeted exams wh ere dose is matched to clinical indication); or iterative reconstruction. DLP: 673.57 mGycm COMPARISON: 06/08/2020, 08/18/2020, 09/11/2020, 09/20/2020 First metatarsal: No fracture. Normal alignment with the medial cuneiform. Second metatarsal: Numerous osseous fragments and fractures along the plantar surface of the proximal metatarsal. Several of these fragments extend between the first and second and second and third join t spaces. Third metatarsal: Numerous small osseous fragments along the plantar surface. Cortical irregularity b etween this proximal second and third metatarsals are also fracture sites. Fourth metatarsal: There are small osseous fragments between the proximal third and fourth metatarsal s. Donor site is probably from the fourth and third metatarsals. Fifth metatarsal: No definite fractures identified although the articular surface of the proximal fif th metatarsal is irregular and I suspect there are small fractures involving the surface of the metac arpal and the adjacent cuboid. Separation between the first and second metatarsal with lateral displacement consistent with a [place] injury. Navicular: No fracture. Medial cuneiform: No definite fracture. There are small osseous fragments between the cuneiform and t he proximal first and second metatarsals. The donor site may potentially be from the medial cuneiform . Intermediate cuneiform. No definite fractures. There are small osseous densities but I believe the do nor site is probably the metatarsal. Lateral cuneiform: Minimally displaced fractures involving the plantar surface of the cuneiform. Cuboid: Irregularity involving the articular surface of the cuboid near the fifth metatarsal. Consist ent with trabecular injury and impaction. Moderate amount of soft tissue edema surrounding the foot. Distal tibia and fibula are intact. No osteochondral lesions. Normal calcaneus and talus. CT/CT foot RT wo con* [id number] IMPRESSION: 1. Mild Lisfranc injury with lateral displacement of the second metatarsal wit h respect to the first metatarsal and cuneiform. 2. Numerous fractures as described above involving the proximal metatarsals an d tarsal bones. There are numerous osseous fractures between the proximal metat arsal articulations and tarsometatarsal articulations.. Majority of the fractur es involve second through fourth metatarsals, lateral cuneiform and cuboid.
== END 2020-09-23 09:08 | disposition home or self-care (01) ==
LOC: RADWPI 09:11
PROVIDERS: PCP Nurse Practitioner Family; Visit Provider Podiatrist Foot & Ankle Surgery
DX: S92.321A Displaced fracture of second metatarsal bone, right foot, initial encounter for closed fracture (principal); X58.XXXA Exposure to other specified factors, initial encounter
CPT/HCPCS: 73700

== ENCOUNTER → 2020-09-25 11:37 | Outpatient (BNVA) | payer MEDICARE, SELFPAY | PROVIDERS: PCP Nurse Practitioner Family; Visit Provider Podiatrist Foot & Ankle Surgery | DX: Z01.812 Encounter for preprocedural laboratory examination (principal); Z20.828 Contact with and (suspected) exposure to other viral communicable diseases | CPT/HCPCS: 87635 ==

== ENCOUNTER 2020-10-01 05:47 | Day surgery (SDC) | payer MEDICARE, SELFPAY ==
[2020-09-30 12:17] VITALS: BMI 25.7
--- NOTE | 2020-10-01 | SCC_ITS ---
Procedure Done: Primary arthrodesis of first and second tarsometatarsal joints right foot CPT code 30395 PROCEDURE DONE: 23 seconds of fluoroscopic guidance, for a cumulative dose of 0.45 mGy, was provided to Dr. Goldman by the radiology department. C-arm images of the RIGHT foot were saved for the patient's permanent record. [facility]
[2020-10-01 06:19] VITALS: BP 110/71; PULSE 81; RESP 16; TEMP 36.5; O2SAT 96
[2020-10-01] MEDS: sodium chloride 0.9% 1,000 ML 30 ML IV (06:34)
--- NOTE | 2020-10-01 06:40 | P.HPUD_ITS ---
Surgery/Procedure H&P Update DATE OF PROCEDURE: October 01, 2020 DATE H&P PERFORMED: 09/24/20 H&P UPDATE INFORMATION: I have reviewed H&P completed within last 30 days, I have examined patient prior to procedure, No changes to prior documentation and H&P is in [facility] EMR on date indicated PREOP DIAGNOSIS: Right Lisfranc fracture dislocation PLANNED PROCEDURE: Operation Date: 10/01/20 07:00 Proposed Procedures Arthrodesis of multiple tarsometatarsal joints right foot secondary to Lisfranc fracture. p Bunionectomy [place] [address] S93.326A(Not Applicable) - Lauri Goldman DPM s Second Tarsometatrsal arthrodesis right foot(Right) - Lauri Goldman DPM
--- NOTE | 2020-10-01 06:44 | ANES.PREANE2 ---
Pre-Anesthetic Assessment Pre-Anesthetic Assessment: Height/Weight: Height 1.6 m Weight 65.771 kg Temp Pulse Resp BP Pulse Ox 97.7 F 81 16 110/71 96 10/01/20 06:19 10/01/20 06:19 10/01/20 06:19 10/01/20 06:19 10/01/20 06:19 Preop Diagnosis: Right Lisfranc fracture dislocation Proposed Procedure: Operation Date: 10/01/20 07:00 Proposed Procedures p Bunionectomy [place] 80054 S93.326A(Not Applicable) - Lauri Goldman DPM s Second Tarsometatrsal arthrodesis right foot(Right) - Lauri Goldman DPM Familial anesthetic complications: None Was Beta Cha taken within 24 hours: N/A Last intake: Intake Last Liquid Date 09/30/20 Last Liquid Time 21:00 Last Solid Date 09/30/20 Last Solid Time 21:00 Social: Social History: No alcohol and No tobacco Comment: former smoker Exam: Pre-Anes Outpt Exam: alert, oriented x 3, clear to auscultation bilaterally and regular rate & rhythm Airway: Cervical ROM: WNL MP: 3 Dentition: False Additional comments: hx tracheostomy Pulmonary: Pulmonary: COPD (mild) GI: Comments: hx gastric bypass Anesthetic Plan: ASA status: 2 Anesthesia: General Risk of > 500 ml blood loss (7ml/kg in children): No Other Pertinent Information: Patient developed infection after knee surgery, which progressed to sepsis and pneumonia. Was in coma for 30 days requiring tracheostomy and developed seizure activity during that hospital stay. No further issues with seizures Meds/Allergies Current Medications: Current Medications Generic Name Dose Route Start Last Admin Trade Name Freq PRN Reason Stop Dose Admin Sodium Chloride 1,000 mls @ 30 ml s/hr 10/01/20 06:00 10/01/20 06:34 Sodium Chloride 0.9% IV 10/02/20 05:59 30 mls/hr .Q24H VONNIE Administration PFSH Anesthesia PFSH: Medical History Bereavement, uncomplicated Bipolar 2 disorder Frequency of urination Generalized epilepsy Mixed urinary incontinence due to female genital prolapse OAB (overactive bladder) OCD (obsessive compulsive disorder) ALEKSANDER (stress urinary incontinence, female) Urgency of urination Surgical History History of tracheostomy History of vaginal surgery posterior colporrhaphy augmented with porcine graft and mid urethral sling 07/10/2018- per Dr. Canela at [facility] No pertinent past surgical history S/P arthroscopic knee surgery 2003- bilateral knees S/P gastric bypass S/P hysterectomy states she still has her ovaries S/P partial resection of colon S/P tubal ligation Status post left knee replacement 2003 Status post tracheostomy Family History Brother Diabetes Mother Hyperlipidemia Stroke Breast cancer Father CAD (coronary artery disease) Other No pertinent family history Denies family history of Hypertension Social History Smoking and tobacco status: former smoker Alcohol intake: former History of recent travel: Yes (travels from [facility]) Data Anesthesia Cardiac Studies: No Data to Display
--- NOTE | 2020-10-01 09:02 | XRR_ITS ---
PROCEDURE INFORMATION: Exam: XR Right Foot Exam date and time: 10/01/2020 9:05 AM Age: 60 years old Clinical indication: Device placement; Joint fixation hardware; Prior surgery; Surgery date: Post-operative (0-2 days); Additional info: Post op TECHNIQUE: Imaging protocol: XR Right foot. Views: 3 or more views. COMPARISON: CT foot RT wo con* [id number] 09/23/2020 9:32 AM FINDINGS: Bones/joints: Prior surgical fusion the 1st metatarsal and the adjacent cuneiform as well as the 2nd metatarsal and adjacent cuneiforms. The subtalar joint and the tibiotalar joint appears normal. Phalanges appear unremarkable. 3rd through 5th metatarsals unremarkable. Soft tissues: Normal. XR/XR foot RT min 3V* [id number] IMPRESSION: Prior surgical fusion 1st metatarsal and the adjacent cuneiform as well as the 2nd metatarsal and adjacent cuneiform.
[2020-10-01 09:12] VITALS: BP 144/87; PULSE 80; RESP 18; TEMP 36.3; O2SAT 93
[2020-10-01 09:34] VITALS: RESP 18
[2020-10-01] MEDS: oxyCODONE-APAP 10-325 mg Tablet 1 TAB PO (09:34)
[2020-10-01 09:44] VITALS: BP 138/86; PULSE 76; RESP 18; TEMP 36.5; O2SAT 98
--- NOTE | 2020-10-01 12:50 | ANE.PACU2 ---
Inpatient post-anesthesia follow up: Airway intact: Yes Vital signs: Temperature 97.7 F Pulse Rate 76 Respiratory Rate 18 Blood Pressure 138/86 Pulse Oximetry 98 Oxygen Delivery Me thod Room Air Oxygen Flow Rate Fraction of Inspir ed Oxygen Hydration adequate: Yes Nausea and vomiting: No Pain level: 2 Mental status: Baseline
--- NOTE | 2020-10-03 20:14 | P.OP_ITS ---
Operative Report Date of procedure: October 01, 2020 Pre-op Diagnosis: Right Lisfranc fracture dislocation Post-op diagnosis: same Post-op Findings: Instability at the first tarsometatarsal joint right foot, displaced fracture of the second tarsometatarsal joint right foot. No stability at the right third tarsometatarsal joint appreciated. Procedure Done: Primary arthrodesis of first and second tarsometatarsal joints right foot CPT code 34232 Implants: Vallejo 28 Lapidus plate and clover plate with combination of 3.5 mm locking screws and nonlocking screws. 4 mm headed partially-threaded cannulated screw. Specimens removed/disposition: None Pathology: none sent Surgeon: Lauri Goldman D.P.M. Sewing Machine Maintenance Mechanic: Gagan Anesthesia: MAC Estimated blood loss: 5 mL Tourniquet time: See intraoperative documentation. IV fluids: None Urine output: None Complications: None Condition: stable Disposition: PACU Brief History: Patient is a 60-year-old female who sustained a right Lisfranc fracture dislocation. I recommended primary arthrodesis of the tarsometatarsal joints affected. Discussed possibility for prime arthrodesis of the first second and third tarsometatarsal joints. Risks include pain, bleeding, numbness, infection, hardware failure, hardware irritation, delayed union, malunion, nonunion, transfer pressure, transfer lesion, altered mechanics, damage to adjacent soft tissue structures, painful scar, surgical site dehiscence, surgical site infection, need for hardware removal, DVT, PE, heart attack, stroke and . Patient interviewed preoperatively her was present. Informed consent signed. I initialed patient's right foot. All questions answered to patient satisfaction. She is wishing to proceed no guarantees written, expressed or implied. Procedure: Under mild sedation the patient was brought to the operating room and placed on the operating table in supine position. A timeout was performed. Anesthesia was administered by the anesthesia service. Local anesthesia injected by myself consisting of 30 cc of 0.5% Marcaine plain and a right ankle block fashion. Well-padded pneumatic tourniquet applied to the right ankle. The right lower extremity was then scrubbed, prepped and draped utilizing normal aseptic technique. Right foot was examined a weighted with an Esmarch bandage and the tourniquet inflated to 250 mmHg. Attention was directed to the dorsal medial aspect of the right first metatarsal phalangeal joint, range of motion in the sagittal plane at the right first metatarsal showed hyper mobility and laxity. New linear longitudinal incision was made medial and parallel to the extensor houses longus tendon with #15 blade. Dissection carried down through subcutaneous tissue and fat layer down the level periosteum utilizing blunt and sharp technique. Care was taken to retract and preserve neurovascular and tendinous structures. Bleeders were ligated and cauterized as necessary. Periosteal incision was made and capsular release at the base of the first metatarsophalangeal joint this was noted to be grossly unstable. Arthrodesis was prepared utilizing curettage and subchondral drilling of the base of the first metatarsal and distal articular surface of the medial cuneiform joint were denuded of the articular surfaces and subchondral drilling performed. This was then temporally fixated and utilizing standard AO technique a combination of locking and nonlocking screws were inserted until a dorsal medial standard Vallejo 28 Lapidus plate 3.5 mm in diameter for the locking screws. A homerun screw from dorsal distal to proximal plantar was also utilized per standard AO technique this was a 4.0 headed screw with excellent bony apposition and compression noted. Intraoperative fluoroscopy utilized to confirm hardware placement and arthrodesis site being anatomical at the first tarsometatarsal joint. Incision site was flushed with saline solution. Periosteum and deep fascial layer reapproximated utilizing 2-0 Vicryl. Subcutaneous tissue reapproximated utilizing 4-0 Vicryl. Perioperative site was infiltrated subcutaneously in a grid like fashion per casino cage supervisor recom mendations of Exparel and skin closed utilizing 4-0 nylon. Attention was then directed to the dorsal midfoot of the right foot where a linear longitudinal incision was made over the second and third ray this was at the second intermetatarsal space with a #15 blade. Care was taken to dissect carefully through subcutaneous tissue down to the layer of periosteum utilizing blunt and sharp technique. Extensor digitorum brevis muscle was retracted laterally and neurovascular bundle retracted medially. All bleeders were ligated and cauterized as necessary. Third tarsometatarsal joint was inspected and noted to be stable without displacement or hypermobility. Attention was directed to the second tarsometatarsal joint where there was fibrous buildup and bony hypertrophy at the dorsum of the second tarsometatarsal joint. This was removed utilizing a rongeur. The second metatarsal base was noted to be displaced laterally. Articular surface of the second metatarsal base and intermediate cuneiform distally was denuded utilizing a sagittal saw and passed from operative field. Incision site and second tarsometatarsal joint arthrodesis site flushed with saline solution. Next subchondral drilling was performed both at the base of the second metatarsal and distal aspect of the intermediate cuneiform. [id number] reduction forceps utilized to reduce the second metatarsal into anatomical alignment with compression and reducing medially. Next utilizing standard AO technique a clover plate per Taisha 28 was placed at the dorsal aspect of the second tarsometatarsal joint and fixated utilizing a combination of locking and nonlocking 3.5 millimeter screws with excellent bony apposition and compression noted. Intraoperative fluoroscopy confirmed appropriate placement of the orthopedic hardware. Temporary fixation was removed. Incision site was flushed with copious amounts of sterile saline solution. Periosteum and deep fascial layer reapproximated utilizing 2-0 Vicryl. Subcutaneous tissue reapproximated utilizing 4-0 Vicryl and skin reapproximated utilizing 4-0 nylon. Utilizing casino cage supervisor recommendation and technique Exparel was infiltrated in a grid like fashion subcutaneously at this incision as well. Incision sites were dressed with Adaptic, sterile 4 x 4, Kerlix and Amauri wrap. Right ankle tourniquet was deflated and a prompt hyperemic response was noted to the distal digits of the right foot. Patient tolerated the procedure and anesthesia well and was transferred to the PACU with vital signs stable and vascular status intact. Following a period of postoperative monitoring she will be discharged home is to remain strict nonweightbearing to the right lower extremity. I advised her to take a 81 mg aspirin once daily for DVT prophylaxis. She was educated on the signs and symptoms of DVT which would include but not limited to swelling, warmth, redness and pain in the calf as well as difficulty breathing and chest pain she is to report to the emergency department should she experience the symptoms. Was given a prescription for pain medication to be taken judiciously as prescribed. Advised her to elevate her right foot at all times while at rest. To keep the cam boot on at all times. Was given follow-up and further postoperative instructions on discharge paperwork.
== END 2020-10-01 10:07 | disposition home or self-care (01) ==
PROVIDERS: PCP Nurse Practitioner Family; Visit Provider Podiatrist Foot & Ankle Surgery
PROC: (CPT 28297; principal; 2020-10-01 07:00)
PROC: (CPT 28740; 2020-10-01 07:00)
DX: S93.324A Dislocation of tarsometatarsal joint of right foot, initial encounter (principal); X58.XXXA Exposure to other specified factors, initial encounter; Z87.891 Personal history of nicotine dependence
CPT/HCPCS: 28730; 73630; 76000; C1713; C9290; J0690; J2250; J2704; J3010; J3490; J7030

== ENCOUNTER → 2020-10-07 08:21 | Outpatient (BNVA) | payer MEDICARE, SELFPAY | PROVIDERS: PCP Nurse Practitioner Family; Visit Provider Nurse Practitioner | DX: F31.81 Bipolar II disorder (principal); F42.9 Obsessive-compulsive disorder, unspecified | CPT/HCPCS: 99214 ==

== ENCOUNTER → 2020-10-08 10:09 | Outpatient (BNVA) | payer MEDICARE, SELFPAY | PROVIDERS: PCP Nurse Practitioner Family; Visit Provider Podiatrist Foot & Ankle Surgery | DX: S93.326A Dislocation of tarsometatarsal joint of unspecified foot, initial encounter (principal); Z98.890 Other specified postprocedural states; X58.XXXA Exposure to other specified factors, initial encounter | CPT/HCPCS: 73630 ==

== ENCOUNTER → 2020-10-14 13:46 | Outpatient (BNVA) | payer MEDICARE, SELFPAY | PROVIDERS: PCP Nurse Practitioner Family; Visit Provider Podiatrist Foot & Ankle Surgery | DX: M79.671 Pain in right foot (principal); Z98.890 Other specified postprocedural states | CPT/HCPCS: 73630 ==

== ENCOUNTER → 2020-11-01 09:49 | Outpatient (BNVA) | payer MEDICARE, SELFPAY | PROVIDERS: PCP Nurse Practitioner Family; Visit Provider Podiatrist Foot & Ankle Surgery | DX: Z98.1 Arthrodesis status (principal) | CPT/HCPCS: 73630 ==

== ENCOUNTER → 2020-11-15 14:33 | Outpatient (BNVA) | payer MEDICARE, SELFPAY | PROVIDERS: PCP Nurse Practitioner Family; Visit Provider Podiatrist Foot & Ankle Surgery | DX: S93.326A Dislocation of tarsometatarsal joint of unspecified foot, initial encounter (principal); X58.XXXA Exposure to other specified factors, initial encounter | CPT/HCPCS: 73630 ==

== ENCOUNTER → 2020-12-06 09:37 | Outpatient (BNVA) | payer MEDICARE, SELFPAY | PROVIDERS: PCP Nurse Practitioner Family; Visit Provider Podiatrist Foot & Ankle Surgery | DX: Z98.890 Other specified postprocedural states (principal) | CPT/HCPCS: 73630 ==

== ENCOUNTER → 2020-12-21 15:00 | Outpatient (BNVA) | payer MEDICARE, SELFPAY | PROVIDERS: PCP Nurse Practitioner Family; Visit Provider Nurse Practitioner | DX: F31.81 Bipolar II disorder (principal); F42.9 Obsessive-compulsive disorder, unspecified | CPT/HCPCS: 99214 ==

== ENCOUNTER → 2021-01-03 13:45 | Outpatient (BNVA) | payer MEDICARE, SELFPAY | PROVIDERS: PCP Nurse Practitioner Family; Visit Provider Podiatrist Foot & Ankle Surgery | DX: Z98.890 Other specified postprocedural states (principal) | CPT/HCPCS: 73630 ==

== ENCOUNTER → 2021-03-21 09:51 | Outpatient (BNVA) | payer MEDICARE, SELFPAY | PROVIDERS: PCP Nurse Practitioner Family; Visit Provider Nurse Practitioner | DX: F31.81 Bipolar II disorder (principal); F42.9 Obsessive-compulsive disorder, unspecified | CPT/HCPCS: 99214 ==

== ENCOUNTER → 2021-04-04 13:55 | Outpatient (BNVA) | payer MEDICARE, SELFPAY | PROVIDERS: PCP Nurse Practitioner Family; Visit Provider Podiatrist Foot & Ankle Surgery | DX: S93.321A Subluxation of tarsometatarsal joint of right foot, initial encounter (principal); Z98.890 Other specified postprocedural states; X58.XXXA Exposure to other specified factors, initial encounter | CPT/HCPCS: 73630 ==

== ENCOUNTER → 2021-06-20 08:35 | Outpatient (BNVA) | payer MEDICARE, SELFPAY | PROVIDERS: PCP Nurse Practitioner Family; Visit Provider Nurse Practitioner | DX: F42.9 Obsessive-compulsive disorder, unspecified (principal); F31.81 Bipolar II disorder | CPT/HCPCS: 99214 ==

== ENCOUNTER → 2021-07-11 13:07 | Outpatient (BNVA) | payer MEDICARE, SELFPAY | PROVIDERS: PCP Nurse Practitioner Family; Visit Provider Podiatrist Foot & Ankle Surgery | DX: Z98.890 Other specified postprocedural states (principal) | CPT/HCPCS: 73630 ==

== ENCOUNTER → 2021-09-20 07:37 | Outpatient (BNVA) | payer MEDICARE, SELFPAY | PROVIDERS: PCP Nurse Practitioner Family; Visit Provider Nurse Practitioner | DX: F31.9 Bipolar disorder, unspecified (principal); F42.9 Obsessive-compulsive disorder, unspecified | CPT/HCPCS: 99214 ==

== ENCOUNTER → 2021-10-14 09:40 | Outpatient (BNVA) | payer MEDICARE, SELFPAY | PROVIDERS: PCP Nurse Practitioner Family; Visit Provider Surgery | DX: Z20.822 Contact with and (suspected) exposure to COVID-19 (principal) | CPT/HCPCS: 87635 ==

== ENCOUNTER 2021-10-20 05:48 | Day surgery (SDC) | payer MEDICARE, SELFPAY ==
[2021-10-17 15:10] VITALS: BMI 22.3
[2021-10-20 06:09] VITALS: BP 107/75; PULSE 101; RESP 18; TEMP 36.6; O2SAT 98
[2021-10-20] MEDS: sodium chloride 0.9% 1,000 ML 30 ML IV (06:23)
--- NOTE | 2021-10-20 06:24 | W.PM.OPSFHP ---
Same Day Surgery H&P Indication for Procedure/HPI DATE OF PROCEDURE: October 20, 2021 CHIEF COMPLAINT/INDICATIONFOR SURGICAL PROCEDURE: Trouble with my bowels PREOP DIAGNOSIS: History of colon polyps and change in bowel habits PLANNED PROCEDURE: Operation Date: 10/20/21 07:00 Proposed Procedures p Colonoscopy 69340/r19.4(Not Applicable) - Diego Medrano MD 09/08/2021 This is a pleasant 61 years old female patient presented to my practice with history of colon polyps and patient does not report exactly when was her last colonoscopy. She also does have issues with explosive diarrhea through the day and when she goes to sleep no control. This has been going on for the past couple of years. Patient also reports some sort of vaginal surgery by gynecology service could be related to a rectocele but she is not 100% sure. This history is obtained from the patient as she denies history of trauma with no tachypnea and reports before 2 years everything was okay. Patient reports history of diarrhea, nonbloody in nature, has been going on for quite some time.? Patient denies history of recent travels, antibiotics, change in medications, questionable source of water, no history of sick contacts, no history of thyroid disorders. 10/20/2021 Patient comes today for diagnostic/surveillance colonoscopy ROS All systems have been reviewed negative except as per the above or per problem Medications/Allergies* Home Medications Medication Instructions Recorded Confirmed Type fluticasone propionate 50 1 spray INTRANASAL DAILY ml 08/12/19 10/20/21 History mcg/actuation nasal spray,suspension (Allergy Relief (fluticasone)) zonisamide 100 mg capsule 200 mg PO BID 09/30/20 10/17/21 History (Zonegran) rizatriptan 10 mg tablet (Maxalt) 10 mg PO DAILY PRN 10/20/21 10/17/21 History Allergies/Adverse Reactions Allergy/AdvReac Type Severity Reaction Status Date / Time morphine Allergy ADR-Headach Verified 10/20/21 06:26 e Current Medications: Generic Name Dose Route Start Last Admin Trade Name Freq PRN Reason Stop Dose Admin Sodium Chloride 1,000 mls @ 30 mls/hr 10/20/21 06:00 10/20/21 06:23 Sodium Chloride 0.9% IV 10/21/21 05:59 30 mls/hr .Q24H VONNIE Administration Pertinent History/Comorbid Conditions* Medical History (Updated 09/10/21 @ 07:35 by Diego Medrano MD) Bereavement, uncomplicated Bipolar 2 disorder Frequency of urination Generalized epilepsy Mixed urinary incontinence due to female genital prolapse OAB (overactive bladder) OCD (obsessive compulsive disorder) Psychiatric care ALEKSANDER (stress urinary incontinence, female) Urgency of urination Surgical History (Updated 02/27/20 @ 00:00 by ) History of tracheostomy History of vaginal surgery posterior colporrhaphy augmented with porcine graft and mid urethral sling 07/10/2018- per Dr. Canela at [facility] No pertinent past surgical history S/P arthroscopic knee surgery 2003- bilateral knees S/P gastric bypass S/P hysterectomy states she still has her ovaries S/P partial resection of colon S/P tubal ligation Status post left knee replacement 2003 Status post tracheostomy Family History (Updated 12/23/19 @ 10:52 by Arielle Barreto RN) No pertinent family history Diabetes Brother CAD (coronary artery disease) Father Hyperlipidemia Mother Breast cancer Mother Stroke Mother Denies family history of Hypertension Social History Smoking and tobacco status: never smoked Alcohol intake: former History of recent travel: Yes (travels from [facility]) Pertinent Exam Findings alert, oriented x 3, regular rate & rhythm and procedure specific exam findings (Abdominal examination nontender nondistended soft) Recommendations Other (Colonoscopy with possible Biopsy) Other Plans: Patient continues to have concerns with regard to her partial incontinence, will plan to send referral for defecography and manometry but will wait till the colonoscopy done today to have a better picture. Coding Level of Care Code Acute Paper Bags Sewing Machine Operator for Leslie Price
--- NOTE | 2021-10-20 06:47 | P.ANESASSM_ITS ---
Pre-Anesthetic Assessment Height/Weight: Height 1.6 m Weight 57.153 kg Temp Pulse Resp BP Pulse Ox 97.8 F 101 H 18 107/75 98 10/20/21 06:09 10/20/21 06:09 10/20/21 06:09 10/20/21 06:09 10/20/21 06:09 Preop Diagnosis: History of colon polyps and change in bowel habits Operation Date: 10/20/21 07:00 Proposed Procedures p Colonoscopy 02820/r19.4(Not Applicable) - Diego Medrano MD Was Beta Cha taken within 24 hours: N/A Was Clonidine taken within 24 hours: Yes Last intake: Intake Last Liquid Date 10/19/21 Last Liquid Time 20:00 Last Solid Date 10/18/21 Last Solid Time 19:00 Exam alert and oriented x 3 Airway Submandibular: within normal limits Cervical ROM: within normal limits Mallampati: Class II Dentition: false History/ROS No significant history except as noted Pulmonary Chronic Obstructive Pulmonary Disease None reported Hepatic None reported GI Gastroesophageal Reflux Disease Metabolic None reported Neuropsych Bipolar and Depression medically induced coma for double pneumonia about 6 years ago. Anesthetic Plan ASA status: 3 Anesthesia: Anesthesia Evaluation and MAC Medications/Allergies Home Medications Medication Instructions Recorded Confirmed Last Taken Type fluticasone propionate 50 1 spray INTRANASAL DAILY ml 08/12/19 10/20/21 10/18/21 History mcg/actuation nasal spray,suspension (Allergy Relief (fluticasone)) zonisamide 100 mg capsule 200 mg PO BID 09/30/20 10/17/21 10/19/21 History (Zonegran) terbinafine HCl 1 % topical spray 1 spray TOPICAL DAILY #125 ml 01/03/21 10/17/21 Unknown Rx (Lamisil (Aerosol)) oxybutynin chloride 15 mg 15 mg PO BID #180 tab 04/22/21 10/17/21 10/19/21 Rx tablet,extended release 24 hr gabapentin 400 mg capsule See Rx Instructions .ROUTE 05/26/21 10/17/21 10/19/21 Rx .COMPLEX #360 cap clonazepam 0.5 mg tablet 0.5 mg PO BID PRN #60 tab 09/13/21 10/20/21 10/20/21 Rx zolpidem 10 mg tablet (Ambien) 10 mg PO .HS #30 tab 09/13/21 10/17/21 10/19/21 Rx lamotrigine 200 mg tablet 400 mg PO .HS #180 tab 09/14/21 10/17/21 10/19/21 Rx (Lamictal) trazodone 100 mg tablet 300 mg PO .HS PRN #270 tab 09/14/21 10/17/21 10/19/21 Rx venlafaxine 75 mg capsule,extended 75 mg PO QAM #90 cap 09/14/21 10/17/21 10/19/21 Rx release 24 hr (Effexor XR) ziprasidone HCl 60 mg capsule 120 mg PO BEDTIME #180 cap 09/14/21 10/17/21 10/19/21 Rx (Geodon) rizatriptan 10 mg tablet (Maxalt) 10 mg PO DAILY PRN 10/20/21 10/17/21 10/19/21 History Allergies Allergy/AdvReac Type Severity Reaction Status Date / Time morphine Allergy ADR-Headach Verified 10/20/21 06:26 e Current Medications Generic Name Dose Route Start Last Admin Trade Name Freq PRN Reason Stop Dose Admin Sodium Chloride 1,000 mls @ 30 mls/hr 10/20/21 06:00 10/20/21 06:23 Sodium Chloride 0.9% IV 10/21/21 05:59 30 mls/hr .Q24H VONNIE Administration PFSH Anesthesia Medical History Bereavement, uncomplicated Bipolar 2 disorder Frequency of urination Generalized epilepsy Mixed urinary incontinence due to female genital prolapse OAB (overactive bladder) OCD (obsessive compulsive disorder) Psychiatric care ALEKSANDER (stress urinary incontinence, female) Urgency of urination Surgical History History of tracheostomy History of vaginal surgery posterior colporrhaphy augmented with porcine graft and mid urethral sling 07/10/2018- per Dr. Canela at [facility] No pertinent past surgical history S/P arthroscopic knee surgery 2003- bilateral knees S/P gastric bypass S/P hysterectomy states she still has her ovaries S/P partial resection of colon S/P tubal ligation Status post left knee replacement 2003 Status post tracheostomy Family History Brother Diabetes Mother Hyperlipidemia Stroke Breast cancer Father CAD (coronary artery disease) Other No pertinent family history Denies family history of Hypertension Social History Smoking and tobacco status: never smoked Alcohol intake: former History of recent travel: Yes (travels from [facility]) Data Anesthesia Cardiac Studies: No Data to Display
[2021-10-20 07:20] VITALS: BP 97/45; PULSE 69; RESP 17; TEMP 36.8; O2SAT 94
[2021-10-20 07:30] VITALS: BP 104/63; PULSE 89; RESP 18; TEMP 36.6; O2SAT 96
--- NOTE | 2021-10-20 07:38 | PC.NURSE ---
maria elena returned to patient. assisted
[2021-10-20 07:40] VITALS: BP 105/69; PULSE 72; RESP 18; O2SAT 100
--- NOTE | 2021-10-20 12:49 | ANE.PACU2 ---
Inpatient post-anesthesia follow up: Airway intact: Yes Vital signs: Temperature 97.9 F Pulse Rate 72 Respiratory Rate 18 Blood Pressure 105/69 Pulse Oximetry 100 Oxygen Delivery Me thod Room Air Oxygen Flow Rate Fraction of Inspir ed Oxygen Hydration adequate: Yes Nausea and vomiting: No Pain level: 1 Mental status: Baseline
== END 2021-10-20 07:55 | disposition home or self-care (01) ==
PROVIDERS: PCP Nurse Practitioner Family; Visit Provider Surgery
PROC: 0DJD8ZZ Inspection of Lower Intestinal Tract, Via Natural or Artificial Opening Endoscopic (ICD-10-PCS; CPT 45378; principal; 2021-10-20 07:00)
DX: Z12.11 Encounter for screening for malignant neoplasm of colon (principal); D12.2 Benign neoplasm of ascending colon; Z90.49 Acquired absence of other specified parts of digestive tract; K21.9 Gastro-esophageal reflux disease without esophagitis; J44.9 Chronic obstructive pulmonary disease, unspecified; Z82.49 Family history of ischemic heart disease and other diseases of the circulatory system; Z83.3 Family history of diabetes mellitus
CPT/HCPCS: 45380; 82274; 83630; 87493; 87506; 88305; J2704; J7030

== ENCOUNTER → 2021-11-10 09:20 | Outpatient (BNVA) | payer MEDICARE, SELFPAY | PROVIDERS: PCP Nurse Practitioner Family; Visit Provider Nurse Practitioner | DX: F31.81 Bipolar II disorder (principal); F42.9 Obsessive-compulsive disorder, unspecified | CPT/HCPCS: 99214 ==

== ENCOUNTER → 2021-12-01 14:13 | Outpatient (BNVA) | payer MEDICARE, SELFPAY | PROVIDERS: PCP Nurse Practitioner Family; Visit Provider Nurse Practitioner | DX: F31.81 Bipolar II disorder (principal); F42.9 Obsessive-compulsive disorder, unspecified; Z87.898 Personal history of other specified conditions | CPT/HCPCS: 80306; 99214 ==

== ENCOUNTER → 2022-01-31 12:59 | Outpatient (BNVA) | payer MEDICARE, SELFPAY | PROVIDERS: PCP Nurse Practitioner Family; Visit Provider Nurse Practitioner | DX: F31.81 Bipolar II disorder (principal); F42.9 Obsessive-compulsive disorder, unspecified | CPT/HCPCS: 99214 ==

== ENCOUNTER 2022-02-07 12:50 | Outpatient (CLI) | payer MEDICARE, SELFPAY ==
--- NOTE | 2022-02-07 12:59 | XR_ITS ---
WS: [id number] LEFT KNEE: 3 VIEW(S) TECHNIQUE: AP, oblique(s) and lateral. HISTORY: L KNEE PAIN COMPARISON: None available. No fracture or dislocation. Prior LEFT knee arthroplasty. No joint effusion. No soft tissue abnormality. XR/XR knee LT 4V [id number] IMPRESSION: Status post LEFT knee arthroplasty. No acute fractures are identified.
--- NOTE | 2022-02-07 13:07 | XR_ITS ---
WS: [id number] XR foot LT min 3V* [id number] REASON FOR EXAM: FOOT PAIN,LEFT FINDINGS: Joint spaces of the left forefoot, midfoot, and hindfoot are intact and well preserved. No fracture is identified. No focal soft tissue abnormality. XR/XR foot LT min 3V* [id number] IMPRESSION: No acute abnormality.
== END 2022-02-07 12:51 | disposition home or self-care (01) ==
LOC: RAD 12:51
PROVIDERS: PCP Nurse Practitioner Family; Visit Provider Nurse Practitioner Family
DX: M79.672 Pain in left foot (principal); M25.562 Pain in left knee
CPT/HCPCS: 73564; 73630

== ENCOUNTER → 2022-02-27 09:04 | Outpatient (BNVA) | payer MEDICARE, SELFPAY | PROVIDERS: PCP Nurse Practitioner Family; Referring Provider Nurse Practitioner Family; Visit Provider Podiatrist Foot & Ankle Surgery | DX: L60.3 Nail dystrophy (principal); M25.562 Pain in left knee; M79.672 Pain in left foot | CPT/HCPCS: 73630; 99214 ==

== ENCOUNTER 2022-05-02 10:30 | Outpatient (CLI) | payer MEDICARE, SELFPAY ==
--- NOTE | 2022-05-02 10:35 | MM_ITS ---
WS: [id number] BILATERAL SCREENING DIGITAL TOMOSYNTHESIS MAMMOGRAM WITH CAD HISTORY: SCREENING COMPARISON: 06/03/2020 and 11/05/2017 Bilateral CC and MLO views with tomosynthesis and synthetic mammography submitted. Computer aided det ection analyzed. Breast composition: There are scattered areas of fibroglandular density. No suspicious masses, microc alcifications or architectural distortion. Benign calcification anterior LEFT breast. MM/[place] [id number] IMPRESSION: BI-RADS: 2-Benign FOLLOW UP: 1 Year Follow-up
[2022-05-02 15:51] LABS: Basophils # 0.1 10^3/uL (0.0-0.1); Basophils % 1.1 %; Eosinophils # 0.2 10^3/uL (0.0-0.8); Eosinophils % 2.3 %; Hematocrit 36.8 % (37.0-47.0); Hemoglobin 11.3 g/dL (11.5-15.3); Lymphocytes # 1.4 10^3/uL (0.8-4.8); Lymphocytes % 20.2 %; Mean Corpuscular HGB Conc 30.7 g/dL (30.0-36.0); Mean Corpuscular Volume 100.8 fl (81-99); Mean Platelet Volume 9.6 fL (7.4-10.4); Monocytes # 0.4 10^3/uL (0.2-0.9); Monocytes % 5.4 %; Neutrophils % 69.6 %; Nucleated Red Blood Cells % 0 %; Platelet Count 309 10^3/cmm (130-400); Red Blood Count 3.65 10^6/uL (4.1-5.3)
[2022-05-02 15:54] LABS: Erythrocyte Sedimentation Rate 5 mm/hr (0-15)
[2022-05-02 16:23] LABS: C Reactive Protein 13.4 mg/L (0.0-4.9)
== END 2022-05-02 10:31 | disposition home or self-care (01) ==
LOC: RAD 10:32
PROVIDERS: Student in an Organized Health Care Education/Training Program; PCP Nurse Practitioner Family; Visit Provider Nurse Practitioner Family
DX: M25.562 Pain in left knee (principal); Z96.652 Presence of left artificial knee joint
CPT/HCPCS: 36415; 73560; 73565; 77063; 77067; 85025; 85651; 86140; 99203

== ENCOUNTER 2022-05-12 11:49 | Emergency (ER) | payer MEDICARE, SELFPAY ==
--- NOTE | 2022-05-12 12:04 | XR_ITS ---
WS: [email or web address] Exam: XR ankle LT min 3V* [id number] Date/Time of Exam: 05/12/2022 12:04 PM Reason For Exam: fall with pain Findings: Multiple views of the ankle reveal no fracture or displacements of bone. No soft tissue swelling is present. There are no periosteal reactions noted. The talus and calcaneus are in adequate position. The joint space is smooth and equidistant. XR/XR ankle LT min 3V* [id number] IMPRESSION: Negative left ankle.
--- NOTE | 2022-05-12 12:04 | XR_ITS ---
WS: [id number] Exam: XR knee LT 3V* [id number] Date/Time of Exam: 05/12/2022 12:04 PM Reason For Exam: fall with pain Comparison 05/02/2022. No acute fracture or dislocation. Effusion in the suprapatellar bursa. A total knee prosthesis is in place in satisfactory position. No fracture or loosening. XR/XR knee LT 3V* [id number] IMPRESSION: 1. Joint effusion in the suprapatellar bursa. 2. Intact total knee replacement without fracture or complication.
[2022-05-12 12:05] VITALS: BMI 19.5
[2022-05-12 12:07] VITALS: BP 91/63; PULSE 118; RESP 18; TEMP 36.7; O2SAT 93
--- NOTE | 2022-05-12 12:12 | ED_ITS ---
HPI - Fall General: Chief Complaint: Fall Stated Complaint: Left knee and foot injury, fall Time Seen by Provider: 05/12/22 12:04 Source: patient Mode of arrival: ambulatory Limitations: no limitations History of Present Illness: 62-year-old female presents to the ER today for left knee and ankle pain x24 hours. Patient reports she was walking yesterday and her legs gave out from under her. She reports she fell straight to the ground landing on her left knee and top of her left foot. Patient reports a history of a left knee replacement. She was seen last week because of increasing left knee pain and had imaging done at that time. Patient reports she does have follow-up scheduled for Sunday with the specialist. Patient reports he has had some increased swelling since last night. She rates her pain a 10 out of 10 and reports this is the worst pain she has had. She reports she is unable to ambulate. Patient spouse does say they have a walker at home for assistance though. Patient does not take anything other than ibuprofen at home for pain. Review of Systems General: Reports: 10 or more systems reviewed and unremarkable except in HPI and below PFSH ED PFSH: Medical History Bereavement, uncomplicated Bipolar 2 disorder Evidence of cessation of misuse of drugs Frequency of urination Generalized epilepsy Mixed urinary incontinence due to female genital prolapse OAB (overactive bladder) OCD (obsessive compulsive disorder) Psychiatric care ALEKSANDER (stress urinary incontinence, female) Urgency of urination Surgical History History of tracheostomy History of vaginal surgery posterior colporrhaphy augmented with porcine graft and mid urethral sling 07/10/2018- per Dr. Canela at [facility] No pertinent past surgical history S/P arthroscopic knee surgery 2003- bilateral knees S/P gastric bypass S/P hysterectomy states she still has her ovaries S/P partial resection of colon S/P tubal ligation Status post left knee replacement 2003 Status post total left knee replacement using cement Status post tracheostomy Family History Brother Diabetes Mother Hyperlipidemia Stroke Breast cancer Father CAD (coronary artery disease) Other No pertinent family history Denies family history of Hypertension Social History Smoking and tobacco status: never smoked Alcohol intake: former History of recent travel: Yes (travels from [facility]) Physical Exam Const: COMMON NORMALS: no acute distress, average body habitus, patient oriented x3, no limitations, healthy appearing, alert and well nourished Resp: COMMON NORMALS: normal respiratory effort EFFORT & INSPECTION: Yes able to speak in complete sentences Cardio: COMMON NORMALS: regular rate and regular rhythm RATE: regular rate RHYTHM: regular rhythm Back/Pelvis: COMMON NORMALS: thoraco-lumbar ROM normal Extremity: NARRATIVE EXTREMITY EXAM: Patient has tenderness over the superior aspect of the left knee. There is minimal swelling noted on exam. Patient does have pain with any range of motion or weightbearing of the left knee and top of the left foot. This pain is mostly located in the left foot at the joint over the dorsal aspect of the foot. There is no obvious swelling or bruising noted. Patient has no skin abrasions or lacerations. Neuro: COMMON NORMALS: patient oriented x3 SENSORIUM/ORIENTATION: Yes alert Psych: COMMON NORMALS: mental status grossly normal, Normal thought process present and cooperative THOUGHT PROCESS: Normal thought process present Skin: COMMON NORMALS: no rashes or lesions noted and no wounds GENERAL SKIN EXAM: no rashes or lesions noted Course ED course: 62-year-old female presents to the ER today for left foot and ankle pain after a fall last night. Patient was standing when her feet gave out from under her and she fell, landing on her left knee and ankle. Patient has a history of a knee replacement. She did have imaging done last week which was unremarkable. Patient has no obvious deformity today. We will go ahead and get repeat imaging of the left knee and ankle at this time. Vital Signs: Vital signs: Vital Signs Temperature 98.0 F 05/12/22 12:07 Pulse Rate 118 H 05/12/22 12:07 Respiratory Rate 18 05/12/22 12:07 Blood Pressure 91/63 05/12/22 12:07 Pulse Oximetry 93 05/12/22 12:07 Oxygen Delivery Me thod 05/12/22 12:07 MDM - Fall Medical Decision Making X-rays of the left knee and ankle are unremarkable. Patient has a known left knee replacement which appears on change from 10 days ago. There is some mild s welling of the bursa superior to the patella. Patient's ankle x-ray is normal. I did discuss findings with patient. Likely patient is just sore from the fall itself. Patient had began having increased left knee pain prior to the fall and this likely made it worse. We will go ahead and give tramadol as patient reports she is unable to ambulate at all. Patient does have a walker which I highly recommend she use at home. Patient has an appointment with her international trade specialist on Sunday. In the meantime I would recommend rest, ice, elevation. Return to the ER with new or worsening symptoms. Patient verbalized understanding was in agreement with the treatment plan. Lab Data Radiology Impressions Ankle X-Ray 05/12/22 12:04 IMPRESSION: Negative left ankle. Knee X-Ray 05/12/22 12:04 IMPRESSION: 1. Joint effusion in the suprapatellar bursa. 2. Intact total knee replacement without fracture or complication. Critical Care Time Critical Care Time: Critical Care Time: No Discharge Plan Discharge Patient Disposition: Home Clinical Impression: Acute pain of left knee Mild sprain of left ankle Qualifiers: Encounter type: initial encounter Qualified Code(s): S93.402A - Sprain of unspecified ligament of left ankle, initial encounter Condition: Stable Prescriptions: New tramadol 50 mg tablet 50 mg PO Q8H PRN (Reason: pain) Qty: 12 0RF No Action fluticasone propionate [Allergy Relief (fluticasone)] 50 mcg/actuation spray,suspension 1 spray INTRANASAL DAILY Rx Instructions: pt's confirmed pt's medication. gabapentin 400 mg capsule See Rx Instructions .ROUTE .COMPLEX Dose Instruction: TAKE 1 CAPSULE EVERY MORNING AND AFTERNOON AND TAKE 2 CAPSULES AT NIGHT Rx Instructions: TAKE 1 CAPSULE EVERY MORNING AND TAKE 2 CAPSULES AT NIGHT ziprasidone HCl [Geodon] 60 mg capsule 60 mg PO .HS Qty: 90 0RF Rx Instructions: give with food (meal/snack) venlafaxine [Effexor XR] 75 mg capsule,extended release 24hr 75 mg PO DAILY Qty: 90 0RF venlafaxine [Effexor XR] 150 mg capsule,extended release 24hr 150 mg PO DAILY Qty: 90 0RF trazodone 300 mg tablet 300 mg PO .HS Qty: 90 0RF lamotrigine [Lamictal] 200 mg tablet 400 mg PO .HS Qty: 180 0RF oxybutynin chloride 15 mg tablet extended release 24hr 15 mg PO BID Qty: 90 0RF zonisamide [Zonegran] 100 mg capsule 200 mg PO BID rizatriptan [Maxalt] 10 mg tablet 15 mg PO DAILY PRN (Reason: migraine headache) Rx Instructions: do not exceed 3 doses per 24 hrs Discharge Orders: Discharge ED (Routine); Ordered 05/12/22 Ordered By: Anabelle Stevenson Referrals: Albert So NP [Primary Care Provider] - Discharge Diet: Usual diet Discharge Activity: Increase activity as tolerated Patient Instructions: Opioid Safety, Pain Management Activity Restrictions/Additional Instructions: Take tramadol as needed for pain. Rest, elevation, ice recommended. Would recommend using a walker for ambulation and support. Follow-up with orthopedic doctor next week as scheduled appointment. Return to the ER with new or worsening symptoms. Coding Level of Care Code ED Inspector [employer] for Leslie Price
== END 2022-05-12 13:27 | disposition home or self-care (01) ==
PROVIDERS: Emergency Provider Physician Assistant; PCP Nurse Practitioner Family
DX: M25.562 Pain in left knee (principal); S93.402A Sprain of unspecified ligament of left ankle, initial encounter; W01.0XXA Fall on same level from slipping, tripping and stumbling without subsequent striking against object, initial encounter
CPT/HCPCS: 73562; 73610; 99283

== ENCOUNTER 2022-06-12 01:00 | Outpatient (CLI) | payer MEDICARE, SELFPAY | END 2022-06-12 22:03 | disposition home or self-care (01) | LOC: RAD 06-27 22:03 | PROVIDERS: PCP Nurse Practitioner Family; Visit Provider Student in an Organized Health Care Education/Training Program | DX: Z96.652 Presence of left artificial knee joint (principal) | CPT/HCPCS: 80503; 87070; 87075; 87205; 89050; 99214 ==

== ENCOUNTER → 2022-06-12 10:38 | Outpatient (BNVA) | payer MEDICARE, SELFPAY | PROVIDERS: PCP Nurse Practitioner Family; Visit Provider Student in an Organized Health Care Education/Training Program | DX: M25.561 Pain in right knee (principal); Z96.652 Presence of left artificial knee joint; W19.XXXA Unspecified fall, initial encounter | CPT/HCPCS: 73560; 73565; 99214 ==

== ENCOUNTER 2022-07-26 09:19 | Outpatient (CLI) | payer MEDICARE, SELFPAY ==
--- NOTE | 2022-07-26 09:37 | NM_ITS ---
WS: [id number] NUCLEAR MEDICINE BONE SCAN 3 PHASE Radiopharmaceutical: 23.9 Tc-99m MDP mCi IV Injection site: RIGHT antecubital Postinjection imaging delay: 2 hr CLINICAL INFORMATION: LT KNEE PAIN, LT ARTIFICIAL KNEE JOINT COMPARISON: Radiograph June 12, 2022 FINDINGS: Prior postoperative changes LEFT TKA. Normal vascularity on the blood flow images. Minimal increased periarticular uptake about the LEFT knee prosthesis. Increased periarticular activity about the LEFT knee prosthesis on the blood pool images anteriorly. Delayed bone images demonstrate low-gr shamar periarticular uptake about the LEFT knee prosthesis most compatible with bony remodeling from jazzy or TKA. No evidence of osteomyelitis. Degenerative type uptake RIGHT knee medial joint compartment. Degenerative type uptake both ankles. Soft tissue contours: Normal. Kidneys: Normal. Other findings: None. NM/NM bone 3 phase 19918 IMPRESSION: 1. Increased periarticular blood pool and delayed bone activity about the LEFT knee prosthesis. This can be seen with bony remodeling from LEFT TKA. If compo nent placement greater than 3 years, consider hardware loosening. 2. No evidence of osteomyelitis. 3. Degenerative uptake involving the RIGHT knee medial joint compartment.
== END 2022-07-26 09:20 | disposition home or self-care (01) ==
PROVIDERS: PCP Nurse Practitioner Family; Visit Provider Student in an Organized Health Care Education/Training Program
DX: M25.562 Pain in left knee (principal); Z96.652 Presence of left artificial knee joint
CPT/HCPCS: 78315; A9561

== ENCOUNTER → 2022-08-08 10:26 | Outpatient (BNVA) | payer MEDICARE, SELFPAY | PROVIDERS: PCP Nurse Practitioner Family; Visit Provider Student in an Organized Health Care Education/Training Program | DX: Z96.652 Presence of left artificial knee joint (principal); M25.562 Pain in left knee | CPT/HCPCS: 20610; 99214; J3301 ==

== ENCOUNTER → 2023-02-09 11:16 | Outpatient (BNVA) | payer MEDICARE, SELFPAY | PROVIDERS: PCP Nurse Practitioner Family; Visit Provider Student in an Organized Health Care Education/Training Program | DX: Z96.652 Presence of left artificial knee joint (principal) | CPT/HCPCS: 20610; 99213; J3301 ==

== ENCOUNTER → 2023-02-20 14:34 | Outpatient (BNVA) | payer MEDICARE, SELFPAY | PROVIDERS: PCP Nurse Practitioner Family; Visit Provider Nurse Practitioner | DX: Z79.899 Other long term (current) drug therapy (principal) | CPT/HCPCS: 80061; 83036 ==

== ENCOUNTER 2023-04-04 11:31 | Inpatient (IN) | payer MEDICARE, SELFPAY ==
[2023-04-04 11:46] VITALS: BP 130/81; PULSE 118; TEMP 37.3; O2SAT 98; BMI 19.8
[2023-04-04 12:37] LABS: Basophils % 0.3 %; Hematocrit 39.8 % (36-47); Lymphocytes # 1.1 10^3/uL (0.8-4.8); Lymphocytes % 8.4 %; Mean Corpuscular HGB Conc 32.9 g/dL (30-55); Mean Corpuscular Hemoglobin 30.8 pg (27-33); Mean Corpuscular Volume 93.4 fl (85-98); Mean Platelet Volume 10.1 fL (7.4-10.4); Monocytes # 1.1 10^3/uL (0.2-0.9); Monocytes % 8.8 %; Neutrophils # 10.42 10^3/uL (1.8-7.7); Neutrophils % 82.2 %; Nucleated Red Blood Cells % 0 %; Platelet Count 314 10^3/cmm (157-399); Red Blood Count 4.26 10^6/uL (3.85-5.65); Red Cell Distribution Width 13.8 % (12.1-15.1); White Blood Count 12.69 10^3/uL (3.29-11.43)
--- NOTE | 2023-04-04 12:37 | PC.PHAR ---
pt unable to verify medications-pts verified pts medications-pts states he is pretty sure the pt is still taking geodon 60mg hs ext history shows last filled 10/02/22 90d/s-pts states he thought the pt was taking gabapentin 400mg tid rx written 01/31/22 ext med history shows 300mg tid filled 03/24/23 90d/s pts states if thats what the pharmacy filled then its the 300mg cap-notes are made in the pharmacy comments
[2023-04-04 12:56] LABS: Acetaminophen < 5.0 ug/mL (10-30); Alanine Aminotransferase 14 U/L (0-33); Albumin Level 4.4 g/dL (3.5-5.2); Alkaline Phosphatase 76 U/L (35-105); Anion Gap 18.4 (5-19); Aspartate Amino Transferase 34 U/L (0-32); Blood Urea Nitrogen 19 mg/dL (8-23); Calcium 8.9 mg/dL (8.5-10.5); Carbon Dioxide 18 mmol/L (22-29); Chloride 105 mmol/L (98-107); Globulin 2.1 g/dL (1.3-4.6); Glucose 126 mg/dL (65-115); Osmolality Calculated 290 mOsm/kg (285-295); Potassium 3.4 mmol/L (3.5-5.1); Salicylate < 0.3 mg/dL (3-10); Sodium 138 mmol/L (136-145); Total Bilirubin 0.5 mg/dL (0.15-1.2); Total Protein 6.5 g/dL (6.6-8.7)
--- NOTE | 2023-04-04 13:28 | CT_ITS ---
WS: [id number] CT HEAD TECHNIQUE: Noncontrast CT of the head obtained from the skullbase to the vertex. CLINICAL INFORMATION: head ahce altered mental status COMPARISON: None. DLP: 1275.[address] scans at [facility] use at least one of these dose optimization techniques: automated e xposure control; mA and/or kV adjustment per patient size (includes targeted exams where dose is matc hed to clinical indication); or iterative reconstruction. FINDINGS: No evidence of intracranial hemorrhage or mass effect. Ventricular system and basal cisterns are puentes nt. Mild small vessel changes with mild parenchymal volume loss. No extra-axial fluid collections. No evidence of mass or mass effect. Paranasal sinuses and mastoid air cells are well aerated. .Normal visualized soft tissues. IMPRESSION: 1. No evidence of intracranial hemorrhage or mass effect. 2. Mild small vessel changes and mild parenchymal volume loss progressed compared to 2019. 3. No acute intracranial findings.
--- NOTE | 2023-04-04 13:29 | ED.C_ITS ---
HPI - Psych General: Chief Complaint: Psychiatric Symptoms Stated Complaint: psych eval Time Seen by Provider: 04/04/23 11:59 Source: patient Mode of arrival: ambulatory History of Present Illness: 63-year-old female brought to the emergency room by her . She has been uncomfortable and extremely agitated the last couple of days worse overnight. She has a history of bipolar disorder she been very restless she is complaining of headaches. He states that she is been having convulsive leg movements but those are normal for her. He feels like she having a mental breakdown . She has not been taking her medications regularly. No suicidal or homicidal ideation. She has been grasping at her head stating she has a headache but cannot localize it for me or tell me any details she has a history of migraine she has not taken any of her medications for that either. MD complaint: altered mental status Onset (ago): day(s) Duration: constant History of same: Yes Relieving factors: none Exacerbating factors: none Context: not taking psychiatric medications Associated psychiatric symptoms: racing thoughts Review of Systems Const: Denies: fever(s), chills, body aches, change in appetite, fatigue or malaise ENMT: Denies: throat pain, ear or mastoid pain, nasal discharge or nasal congestion Card: Denies: chest pain, edema, dyspnea on exertion or orthopnea Resp: Denies: dyspnea, productive cough or non-productive cough GI: Denies: abdominal pain, nausea, vomiting, hematemesis, coffee ground em esis, diarrhea, constipation, bloating, hematochezia or melena : Denies: flank pain, difficulty voiding, dysuria, urinary frequency or urinary urgency Skin/Breast: Denies: rash or pruritus Psych: Reports: anxiety, mood swings and sleeping less [facility] ED PFSH: Medical History Bereavement, uncomplicated Bipolar 2 disorder Evidence of cessation of misuse of drugs Frequency of urination Generalized epilepsy Mixed urinary incontinence due to female genital prolapse OAB (overactive bladder) OCD (obsessive compulsive disorder) Psychiatric care ALEKSANDER (stress urinary incontinence, female) Urgency of urination Surgical History History of tracheostomy History of vaginal surgery posterior colporrhaphy augmented with porcine graft and mid urethral sling 07/10/2018- per Dr. Canela at [facility] No pertinent past surgical history S/P arthroscopic knee surgery 2003- bilateral knees S/P gastric bypass S/P hysterectomy states she still has her ovaries S/P partial resection of colon S/P tubal ligation Status post left knee replacement 2003 Status post total left knee replacement using cement Status post tracheostomy Family History Brother Diabetes Mother Hyperlipidemia Stroke Breast cancer 80's Father CAD (coronary artery disease) Sister Uterine cancer 30's Other No pertinent family history Denies family history of Colon cancer Ovarian cancer Clotting disorder Heart disease Anesthesia complication Bleeding disorder Hypertension Thyroid condition Social History Smoking and tobacco status: never smoked Alcohol intake: former Substance/Drug Use: never Physical Exam Const: GENERAL APPEARANCE: cooperative ORIENTATION/CONSCIOUSNESS: Yes awake HENMT: COMMON NORMALS: normocephalic, atraumatic and hearing grossly normal bilaterally HEAD & SCALP: normocephalic and atraumatic Resp: COMMON NORMALS: normal respiratory effort, No retractions, No use of accessory muscles and clear to auscultation bilaterally AUSCULTATION: clear to auscultation bilaterally Cardio: COMMON NORMALS: regular rate, regular rhythm and No murmurs present (Cardio) RATE: regular rate RHYTHM: regular rhythm GI: COMMON NORMALS: Soft to palpation and No hepatosplenomegaly present AUSCULTATION: Yes normoactive bowel sounds PALPATION: Yes Soft to palpation, No Tenderness to palpation present (GI), No Guarding due to palpation present (GI) and Yes No hepatosplenomegaly present Extremity: COMMON NORMALS: normal to inspection, capillary refill normal, no clubbing, cyanosis or edema, no calf tenderness and no pedal edema Skin: COMMON NORMALS: no rashes or lesions noted GENERAL SKIN EXAM: no rashes or lesions noted Course 2 Vital Signs: Vital signs: Vital Signs Temperature 98.4 F 04/06/23 19:47 Pulse Rate 78 04/07/23 06:00 Respiratory Rate 16 04/07/23 06:00 Blood Pressure 121/79 04/07/23 06:00 Pulse Oximetry 97 04/07/23 06:00 Oxygen Delivery Me thod Room Air 04/07/23 06:00 MDM - Psych Medical Decision Making Bipolar with manic phase we will admit discussed with psychiatry on-call orders written Medical Records I reviewed the patient's medical records. Lab Data I reviewed the patient's lab results. 04/04/23 12:28 04/04/23 12:28 Laboratory Results WBC 12.69 10^3/uL (3.29-11.43) H 04/04/23 12:28 RBC 4.26 10^6/uL (3.85-5.65) 04/04/23 12:28 Hgb 13.10 g/dL (11.27-16.99) 04/04/23 12:28 Hct 39.8 % (36-47) 04/04/23 12:28 MCV 93.4 fl (85-98) 04/04/23 12:28 MCH 30.8 pg (27-33) 04/04/23 12:28 MCHC 32.9 g/dL (30-55) 04/04/23 12:28 RDW 13.8 % (12.1-15.1) 04/04/23 12:28 Plt Count 314 10^3/cmm (157-399) 04/04/23 12:28 MPV 10.1 fL (7.4-10.4) 04/04/23 12:28 Neut % (Auto) 82.2 % 04/04/23 12:28 Lymph % (Auto) 8.4 % 04/04/23 12:28 [place] % (Auto) 8.8 % 04/04/23 12:28 Eos % (Auto) 0.0 % 04/04/23 12:28 Baso % (Auto) 0.3 % 04/04/23 12:28 Neut # (Auto) 10.42 10^3/uL (1.8-7.7) H 04/04/23 12:28 Lymph # (Auto) 1.1 10^3/uL (0.8-4.8) 04/04/23 12:28 [place] # (Auto) 1.1 10^3/uL (0.2-0.9) H 04/04/23 12:28 Eos # (Auto) 0.0 10^3/uL (0.0-0.8) 04/04/23 12:28 Baso # (Auto) 0.0 10^3/uL (0.0-0.1) 04/04/23 12:28 Nucleated RBC % (auto) 0 % 04/04/23 12:28 Nucleated RBCs # 0.0 /100WBC 04/04/23 12:28 Sodium 138 mmol/L (136-145) 04/04/23 12:28 Potassium 3.4 mmol/L (3.5-5.1) L 04/04/23 12:28 Chloride 105 mmol/L (98-107) 04/04/23 12:28 Carbon Dioxide 18 mmol/L (22-29) L 04/04/23 12:28 Anion Gap 18.4 (5-19) 04/04/23 12:28 BUN 19 mg/dL (-23) 04/04/23 12:28 Creatinine 0.6 mg/dL (0.5-0.9) 04/04/23 12:28 GFR Calculation 101.0 mL/min (90-130) 04/04/23 12:28 Glucose 126 mg/dL (65-115) H 04/04/23 12:28 Calculated Osmolality 290 mOsm/kg (285-295) 04/04/23 12:28 Calcium 8.9 mg/dL (8.5-10.5) 04/04/23 12:28 Total Bilirubin 0.5 mg/dL (0.15-1.2) 04/04/23 12:28 AST 34 U/L (0-32) H 04/04/23 12:28 ALT 14 U/L (0-33) 04/04/23 12:28 Alkaline Phosphatase 76 U/L (35-105) 04/04/23 12:28 Total Protein 6.5 g/dL (6.6-8.7) L 04/04/23 12:28 Albumin 4.4 g/dL (3.5-5.2) 04/04/23 12:28 Globulin 2.1 g/dL (1.3-4.6) 04/04/23 12:28 Salicylates < 0.3 mg/dL (3-10) L 04/04/23 12:28 Acetaminophen < 5.0 ug/mL (10-30) L 04/04/23 12:28 Ethyl Alcohol < 10 mg/dL (0-10) 04/04/23 12:28 Discharge Plan Discharge Patient Disposition: Admitted As Inpatient Admit Provider: Truman Sears Clinical Impression: Bipolar depression manic phase Condition: Stable Coding Level of Care Code ED Presales Senior Specialist for Leslie Price
[2023-04-04] MEDS: LORazepam 2 mg Tablet PO (13:42)
--- NOTE | 2023-04-04 13:45 | XR_ITS ---
WS: [id number] EXAMINATION: XR chest 1V portable [id number] REASON FOR EXAM: dyspnea/cough COMPARISON: 02/23/2020 ORDER DATE: 04/04/2023 1:47 PM TECHNIQUE: A single, portable frontal chest x-ray was obtained. X-RAY FINDINGS: The lungs are clear. Pleural spaces are clear. No pleural effusions or pneumothorax. Cardiomediastinal silhouette is normal. No evidence for pulmonary edema. Soft tissue and osseous structures are unremarkable. No tubes or lines are present. IMPRESSION: Unremarkable frontal portable chest x-ray.
[2023-04-04 13:47] VITALS: BP 154/96; PULSE 98; RESP 20; O2SAT 98
[2023-04-04 13:48] LABS: Alcohol Level < 10 mg/dL (0-10)
[2023-04-04 17:21] VITALS: BP 101/67; PULSE 81; RESP 16; TEMP 36.8; O2SAT 99
[2023-04-04 18:00] LABS: THC Screen Urine Positive (Negative)
[2023-04-04 18:01] LABS: Amphetamines Screen Urine Negative (Negative); Barbiturates Screen Urine Negative (Negative); Benzodiazepines Screen Urine Positive (Negative); Cocaine Screen Urine Negative (Negative); Opiate Screen Urine Negative (Negative); PCP Screen Urine Negative (Negative)
--- NOTE | 2023-04-04 18:38 | PC.NURSE ---
pt came to the ER via . pt is not oriented to person, place, or thing. pt is anxious, restless, and confused. states that is has been going on since 04/02/23. pt is concerned that some of this has to do with her recently starting to smoke weed again about a month ago.
[2023-04-04] MEDS: lamoTRIgine 100 mg Tablet 400 MG PO (20:39)
[2023-04-04] MEDS: ziprasidone hcl 60 mg Capsule PO (20:39)
[2023-04-04] MEDS: gabapentin 300 mg Capsule PO (20:39)
[2023-04-04 20:43] VITALS: BP 144/82; PULSE 100; RESP 18; TEMP 36.5; O2SAT 96
--- NOTE | 2023-04-05 00:09 | PC.NURSE ---
Pt is very confused and not oriented. Pt has gotten up out of bed and has been wandering the halls, trying to open the doors, and walking into other patients rooms. Pt states she does not know where she is or where her room is. Pt has been shown her bed and room each time she has been redirected.
[2023-04-05 06:00] VITALS: BP 130/88; PULSE 124; RESP 18; TEMP 36.7; O2SAT 97
[2023-04-05] MEDS: acetaminophen 325 mg Tablet 650 MG PO ×2 (06:35→10:09)
[2023-04-05] MEDS: pantoprazole DR 40 mg Tablet PO ×2 (08:31→17:07)
[2023-04-05] MEDS: gabapentin 300 mg Capsule PO ×3 (08:31→19:56)
[2023-04-05] MEDS: aspirin 81 mg EC Tablet PO (08:31)
[2023-04-05] MEDS: zonisamide 100 MG Capsule 200 MG PO ×2 (08:31→17:07)
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
[2023-04-05 14:00] VITALS: BP 129/85; PULSE 101; RESP 15; TEMP 36.9; O2SAT 98
[2023-04-05] MEDS: fixodent 39 gm Tube 1 APPLIC DENTAL (18:20)
[2023-04-05] MEDS: lamoTRIgine 100 mg Tablet 400 MG PO (19:56)
[2023-04-05] MEDS: ziprasidone hcl 60 mg Capsule PO (19:56)
[2023-04-05 20:11] VITALS: BP 138/90; PULSE 102; RESP 16; TEMP 36.8; O2SAT 97
[2023-04-06] MEDS: acetaminophen 325 mg Tablet 650 MG PO ×3 (04:59→20:15)
[2023-04-06 06:00] VITALS: BP 122/74; PULSE 80; RESP 17; TEMP 36.9; O2SAT 95
[2023-04-06] MEDS: gabapentin 300 mg Capsule PO ×3 (08:59→20:15)
[2023-04-06] MEDS: aspirin 81 mg EC Tablet PO (08:59)
[2023-04-06] MEDS: zonisamide 100 MG Capsule 200 MG PO ×2 (08:59→17:27)
[2023-04-06] MEDS: pantoprazole DR 40 mg Tablet PO ×2 (08:59→17:27)
[2023-04-06] MEDS: ibuprofen 600 mg Tablet PO (09:46)
[2023-04-06] MEDS: hyDROXYzine 25 mg Capsule 50 MG PO ×2 (13:28→20:15)
[2023-04-06 14:00] VITALS: BP 147/86; PULSE 95; RESP 16; TEMP 36.6; O2SAT 98
--- NOTE | 2023-04-06 17:03 | W.PM.NPUPNS ---
Subjective NPU Subjective: Patient presented today reporting that she is doing much better per staff reports and personal evaluation this appears to be true. She cannot explain the significant aggression and functioning followed by the unexplained return to clinic. She did use a lot of couple days ago we did talk about the fact that certain strains could be problematic for person. Did not have this experience with previous use. We discussed her voiding marijuana use at least for short period of time making sure that its that is not a contributing factor. We discussed the possibility of discharge in the morning if she continues with high level of function. Mental Status Exam MSE Comments: This is a well-nourished well-developed white female looking older than her stated age in hospital scrubs with adequate grooming and adequate eye contact. No abnormal movements. Cooperative with exam no acute distress. Speech was more normal rate and volume. Mood described as much better, affect congruent. Thought process linear. Thought content: Patient denies suicidal or homicidal ideation, there were no delusions reported or noted, she denied any auditory or visual hallucinations. Attention, concentration and memory all appear significantly good, but none were formally tested. She is alert and oriented x8. Insight, judgment and impulse control are improving. Vitals/I&O/Wt Last Vital Signs Temp 98 F 04/06/23 14:00 Pulse 95 04/06/23 14:00 Resp 16 04/06/23 14:00 BP 147/86 04/06/23 14:00 Pulse Ox 98 04/06/23 14:00 O2 Del Method Room Air 04/06/23 14:00 Data NPU 04/04/23 12:28 04/04/23 12:28 A&P Assessment and plan (1) Mixed incontinence: (2) OAB (overactive bladder): (3) Status post total left knee replacement using cement: (4) Evidence of cessation of misuse of drugs: (5) Frequency of urination: (6) Urgency of urination: (7) OCD (obsessive compulsive disorder): Qualifiers: Obsessive-compulsive disorder type: unspecified Qualified Code(s): F42.9 - Obsessive-compulsive disorder, unspecified (8) Bipolar 2 disorder: (9) Bereavement, uncomplicated: Plan 63-year-old white female with a long history of mental health treatment with history of bipolar diagnosis and recent new use of medicinal marijuana who presented with some confusion and possible altered mental status with UDS positive for benzodiazepines and cannabis endorsing confusion and some reports of nonadherence to medication. 1.? Continue current medication.? Dramatic improvement overall suggestive of some kind of insult from overuse of medication or drug use. 2.? Continue every 15 minute checks for safety. 3.? Encourage individual, group and milieu therapy 4. Encourage sober living treatment after discharge at the highest level of care to which she is willing to commit. 5. Identify whether or not she has a guardian and if so why and get collateral information from regardless on recent functioning. is not guardian called that she has a guardian. 6. With dramatic improvement possible discharge tomorrow. Involuntary Hold Information 96 Hour Hold: 96 Hour Involuntary Admission: No Attestations NPU Medical Necessity Statement*: Inpatient hospitalization is medically necessary and the clinically appropriate intervention at this time.? We will monitor medications and make changes as indicated.? Likely length of stay 1-3 days. Coding Level of Care Code Acute Code for Chg Fwd Diagnoses Mixed incontinence N39.46 OAB (overactive bladder) N32.81 Status post total left knee replacement using cement Z96.652 Evidence of cessation of misuse of drugs Z87.898 Frequency of urination R35.0 Urgency of urination R39.15 OCD (obsessive compulsive disorder) F42.9 Obsessive-compulsive disorder type: unspecified Bipolar 2 disorder F31.81 Bereavement, uncomplicated Z63.4
[2023-04-06 19:47] VITALS: BP 118/80; PULSE 87; RESP 18; TEMP 36.9; O2SAT 97
[2023-04-06] MEDS: trazodone 100 mg Tablet 400 MG PO (20:15)
[2023-04-06] MEDS: ziprasidone hcl 60 mg Capsule PO (20:15)
[2023-04-06] MEDS: mirtazapine 15 mg Tablet 7.5 MG PO (20:16)
[2023-04-06] MEDS: lamoTRIgine 100 mg Tablet 400 MG PO (20:16)
[2023-04-07 06:00] VITALS: BP 121/79; PULSE 78; RESP 16; O2SAT 97
[2023-04-07] MEDS: pantoprazole DR 40 mg Tablet PO (08:35)
[2023-04-07] MEDS: venlafaxine ER (24HR) 75 mg Capsule PO (08:35)
[2023-04-07] MEDS: gabapentin 300 mg Capsule PO ×2 (08:35→14:48)
[2023-04-07] MEDS: aspirin 81 mg EC Tablet PO (08:35)
[2023-04-07] MEDS: acetaminophen 325 mg Tablet 650 MG PO ×2 (08:35→13:11)
[2023-04-07] MEDS: venlafaxine ER (24HR) 150 mg Capsule PO (08:35)
[2023-04-07] MEDS: zonisamide 100 MG Capsule 200 MG PO (08:35)
[2023-04-07] MEDS: fluticasone nasal spray 16gm Btl 1 SPRAY INTRANASAL (09:30)
[2023-04-07 13:48] VITALS: BP 110/62; PULSE 78; RESP 17; TEMP 36.7; O2SAT 97
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
[2023-04-07 15:26] VITALS: BP 110/62; PULSE 78; RESP 17; TEMP 36.7; O2SAT 97
--- NOTE | 2023-04-07 15:50 | PC.NURSE ---
discharge instruction discussed and left with patient and spouse. pt stated understanding. leaving in pov.
== END 2023-04-07 15:54 | disposition home or self-care (01) | DRG 885 ==
LOC: ER 13:33 → NP 16:25
PROVIDERS: Admitting Provider Psychiatry & Neurology Psychiatry; Emergency Provider Family Medicine; PCP Nurse Practitioner Family; Visit Provider Psychiatry & Neurology Psychiatry
DX: F31.81 Bipolar II disorder (principal); Z91.148 Patient's other noncompliance with medication regimen for other reason; Z81.8 Family history of other mental and behavioral disorders; F12.90 Cannabis use, unspecified, uncomplicated; F10.11 Alcohol abuse, in remission
CPT/HCPCS: 36415; 70450; 71045; 80053; 80306; 80307; 85025; 97150; 97165; 99238; 99285

== ENCOUNTER → 2023-04-10 07:26 | Outpatient (BNVA) | payer MEDICARE, SELFPAY | PROVIDERS: PCP Nurse Practitioner Family; Visit Provider Student in an Organized Health Care Education/Training Program | DX: M17.11 Unilateral primary osteoarthritis, right knee | CPT/HCPCS: 73560; 73565; 99213 ==

== ENCOUNTER 2023-04-11 10:19 | Outpatient (CLI) | payer MEDICARE, SELFPAY | END 2023-04-11 10:20 | disposition home or self-care (01) | LOC: SPT 10:20 | PROVIDERS: PCP Nurse Practitioner Family; Visit Provider Student in an Organized Health Care Education/Training Program | DX: Z46.89 Encounter for fitting and adjustment of other specified devices (principal); M17.11 Unilateral primary osteoarthritis, right knee | CPT/HCPCS: J3301; L1812 ==

== ENCOUNTER → 2023-05-10 07:14 | Outpatient (BNVA) | payer MEDICARE, SELFPAY | PROVIDERS: PCP Nurse Practitioner Family; Visit Provider Student in an Organized Health Care Education/Training Program | DX: T84.84XA Pain due to internal orthopedic prosthetic devices, implants and grafts, initial encounter (principal); Z96.652 Presence of left artificial knee joint; Y79.2 Prosthetic and other implants, materials and accessory orthopedic devices associated with adverse incidents | CPT/HCPCS: 20610; 99213; J3301 ==

== ENCOUNTER 2023-07-18 10:29 | Outpatient (CLI) | payer MEDICARE, SELFPAY ==
--- NOTE | 2023-07-18 11:06 | MM_ITS ---
WS: [id number] Bilateral screening 3D tomosynthesis digital mammogram, 07/18/2023 Clinical Data: SCREENING Comparison: 05/02/2022, 06/03/2020, 04/07/2018, 07/07/2014. Findings: The breast parenchymal pattern shows fibroglandular tissue. No spiculated masses or clustered calcifi cations are seen. There are no secondary signs of carcinoma. Impression: 1. Negative bilateral mammogram unchanged. 2. Recommend annual screening mammograms. MM/[place] [id number] BIRADS: 1-Negative FOLLOW UP: 1 Year Follow-up The CAD card checker was used.
== END 2023-07-18 10:30 | disposition home or self-care (01) ==
LOC: RAD 10:29
PROVIDERS: PCP Nurse Practitioner Family; Visit Provider Nurse Practitioner Family
DX: Z12.31 Encounter for screening mammogram for malignant neoplasm of breast (principal)
CPT/HCPCS: 77063; 77067

== ENCOUNTER 2023-08-07 11:56 | Outpatient (CLI) | payer MEDICARE, SELFPAY ==
--- NOTE | 2023-08-07 11:58 | MR_ITS ---
WS: [id number] MRI HEAD WITHOUT CONTRAST TECHNIQUE: Sagittal T1, T2 axial, T2 axial FLAIR, axial and coronal T1 images, axial susceptibility w eighted imaging, axial diffusion weighted images, and coronal T2 images were obtained. CLINICAL INFORMATION: MEMORY LOSS COMPARISON: CT 04/04/2023 and MRI 2014 FINDINGS: No evidence of restricted diffusion to suggest acute ischemia. Ventricular system and basal cisterns are patent. Mild small vessel changes with moderate parenchymal volume loss progressed since 2015. No rmal posterior fossa. Normal vascular flow voids at the skull base. No extra-axial fluid collections. No mass or mass effect. Paranasal sinuses are well aerated. Mastoid air cells are well aerated. Normal posterior nasopharynx. Normal parapharyngeal fat. No hemosiderin on the susceptibly weighted images. IMPRESSION: 1. No evidence of restricted diffusion to suggest acute ischemia. 2. Mild small vessel changes. Moderate parenchymal volume loss. Findings are progressed compared to 2015. 3. No hemosiderin on susceptibility-weighted images. 4. No other acute findings.
== END 2023-08-07 11:57 | disposition home or self-care (01) ==
LOC: RAD 11:56
PROVIDERS: PCP Nurse Practitioner Family; Visit Provider Nurse Practitioner Family
DX: R41.3 Other amnesia (principal); I67.89 Other cerebrovascular disease
CPT/HCPCS: 70551

== ENCOUNTER 2023-08-15 12:51 | Outpatient (CLI) | payer MEDICARE, SELFPAY ==
--- NOTE | 2023-08-15 12:56 | CT_ITS ---
WS: [id number] LDCT LUNG CANCER SCREENING HISTORY: HX OF TOBACCO USE TECHNIQUE: Axial imaging performed from the apices to 1 cm below the costophrenic angles. Coronal and sagittal reformats are submitted with axial MIP series. All CT scans at [facility] use at least one of these dose optimization techniques: automated exposure control; mA and/or kV adjustment per patient size (includes targeted exams where dose is matched to clinical indication); or iterativ e reconstruction. DLP: 40.90 mGy.cm DIvol: Mean CTDIvol: 0.70 (mGy) COMPARISON: 02/24/2020 Diagnostic quality: Satisfactory Lungs: No pulmonary mass or nodule. Thin linear scarring in the anterior RIGHT upper lobe. There is a lso mild bronchiectasis RIGHT upper lobe. Heart: Normal size heart with no pericardial effusion.. Mild increase in amount of pericardial fat. Other findings: Moderate hiatal hernia. Postoperative changes at the GE junction probably from prior gastric bypass. No history was provided. Mild increase in thoracic kyphosis. IMPRESSION: CT/CT lung screening [id number] LUNG-RADS: 2-Benign Appearance or Behavior FOLLOW UP: 12 Month: Continue annual screening with LDCT OTHER FINDINGS (S MODIFIER): None.
== END 2023-08-15 12:52 | disposition home or self-care (01) ==
LOC: RAD 12:51
PROVIDERS: PCP Nurse Practitioner Family; Visit Provider Family Medicine
DX: Z12.2 Encounter for screening for malignant neoplasm of respiratory organs (principal); Z87.891 Personal history of nicotine dependence
CPT/HCPCS: 71271

== ENCOUNTER → 2023-09-14 10:45 | Outpatient (BNVA) | payer MEDICARE, SELFPAY | PROVIDERS: PCP Nurse Practitioner Family; Visit Provider Dermatology | DX: L23.9 Allergic contact dermatitis, unspecified cause (principal); L82.0 Inflamed seborrheic keratosis | CPT/HCPCS: 17110; 99213 ==

== ENCOUNTER 2024-04-10 14:18 | Outpatient (CLI) | payer MEDICARE, SELFPAY ==
--- NOTE | 2024-04-10 14:38 | XR_ITS ---
WS: [id number] Exam: XR lumbar spine 6V w f/e [id number] Date/Time of Exam: 04/10/2024 2:41 PM Reason For Exam: DEGENERATIVE DISC DZ,LUMBOSACRAL SPINE W/RADICULOPATHY No fracture or dislocation. Levoscoliosis noted. No flexion or extension instability. Facet DJD at al l levels. Disc spaces are preserved. Numerous surgical clips and sutures in the LEFT abdomen and pelv is. Neurostimulator in the RIGHT pelvis. There is an opaque tube in the LEFT abdomen. This may be a f eeding tube. XR/XR lumbar spine 6V w f/e [id number] IMPRESSION: 1. No fracture or malalignment. No instability identified. 2. Levoscoliosis and mild degenerative changes as above.
--- NOTE | 2024-04-10 14:38 | XR_ITS ---
WS: [id number] Exam: XR cervical spine 3V* [id number] Date/Time of Exam: 04/10/2024 2:41 PM Reason For Exam: DEGENERATIVE OF THORACIC INTERVERTEBRAL DISC No fracture or dislocation. Exaggerated cervical lordosis. Facet DJD at all levels. Disc spaces are p reserved. Normal paraspinal soft tissues. The odontoid is intact. XR/XR cervical spine 3V* [id number] IMPRESSION: 1. Exaggerated cervical lordosis. Facet DJD at all levels. 2. No fracture or malalignment.
== END 2024-04-10 14:19 | disposition home or self-care (01) ==
PROVIDERS: PCP Nurse Practitioner Family; Visit Provider Internal Medicine
DX: M51.36 Other intervertebral disc degeneration, lumbar region (principal); M51.34 Other intervertebral disc degeneration, thoracic region; M40.56 Lordosis, unspecified, lumbar region; M47.896 Other spondylosis, lumbar region
CPT/HCPCS: 72040; 72114